=== PATIENT | female | born 1980 | race Caucasian/White ===

== ENCOUNTER 2016-07-27 20:13 | Emergency (ER) | payer MEDICARE, OTHER ==
[2016-07-27 20:48] VITALS: BP 134/94; PULSE 75; RESP 16; TEMP 98.1
[2016-07-27] MEDS ORDERED: CLINDAMYCIN 150 MG CAP PO STA (21:23)
[2016-07-27] MEDS ORDERED: HYDROcodone/APAP 5-325MG 1 EACH TAB PO STA (21:24)
--- NOTE | 2016-07-27 21:28 | ED ---
ENT HPI - General Chief complaint: Dental/Oral Stated complaint: Dental Pain Time Seen by Provider: 07/27/16 21:11 Source: patient Mode of arrival: ambulatory Limitations: no limitations - History of Present Illness Initial comments: Patient is a 35-year-old female presenting to the emergency department with complaints of "infection to wisdom tooth, dental pain and right lower facial swelling." Patient states she started developing a toothache 2 days ago and went to the urgent care clinic in [place] where she was started on amoxicillin. Patient states this is ALLERGIC to penicillin and thinks the amoxicillin might have been the reason why she's been having nausea and vomiting the last 2 days. Patient states she went to [facility] today for increased pain and swelling. Patient states she received another antibiotic but in reviewing records it was noted the antibiotic was Valtrex. Upon further questioning, patient states she is being treated for herpes currently. Patient states she is now returning to [facility] because she can't tolerate the tooth pain which is unrelieved by Motrin 800. Patient states she has a dentist appointment on August 07. Patient denies chills, fevers, shortness of breath, chest pain, abdominal pain, diarrhea, constipation, urinary urgency, dysuria, or hematuria. Patient states she is up- to-date on immunizations. MD complaint: tooth pain Onset/Timin -: days(s) Location: tooth # (32) Severity: severe Severity scale (1-10): 10 Quality: sharp Consistency: constant Improves with: none Worsens with: swallowing, eating Associated Symptoms: toothache, pain with swallowing - Related Data Home Medications Medication Instructions Recorded Confirmed Cephalexin [Keflex] 07/27/16 07/27/16 valACYclovir HCL [Valtrex] 07/27/16 07/27/16 Previous Rx's Medication Instructions Recorded Clindamycin [Cleocin] 450 mg PO TID #30 capsule 07/27/16 HYDROcodone/APAP 5-325MG [Slatedale 5] 1 each PO Q4HR PRN #12 tab 07/27/16 Allergies Allergy/AdvReac Type Severity Reaction Status Date / Time No Known Allergies Allergy Verified 07/27/16 20:47 Review of Systems ROS Statement: Those systems with pertinent positive or pertinent negative responses have been documented in the HPI. ROS Other: All systems not noted in ROS Statement are negative. 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 Absent: scleral icterus, conjunctival injection, periorbital swelling, periorbital tenderness Expanded Ear exam: Present: normal external inspection Mouth exam: Present: tongue normal. Absent: drooling, trismus Teeth exam: Present: dental caries (32), dental tenderness # (32) Throat exam: normal inspection. negative: tonsillar erythema, tonsillomegaly, tonsillar exudate, R peritonsillar mass, L peritonsillar mass Neck exam: Present: normal inspection, tenderness, full ROM, lymphadenopathy ( Right posterior cervical lymph node) Respiratory exam: Present: normal lung sounds bilaterally Cardiovascular Exam: Present: regular rate, normal rhythm, normal heart sounds GI/Abdominal exam: Present: soft, normal bowel sounds Neurological exam: Present: alert, oriented X3, normal gait, other (No focal deficits) Psychiatric exam: Present: anxious Skin exam: Present: warm, dry, intact, normal color. Absent: rash Course Vital Signs 07/27/16 20:44 Temperature 98.1 F Pulse Rate 75 Respiratory 16 Rate Blood Pressure 134/94 O2 Sat by Pulse 98 Oximetry Medical Decision Making - Medical Decision Making Dental abscess to tooth #32 associated with minimal facial swelling. Antibiotics changed to clindamycin. Patient given prescription for Slated[place] 5, 12 tablets. Patient instructed to follow-up with dentist. Patient agrees with treatment plan. Discharge instructions and return parameters reviewed. Disposition Clinical Impression: Dental abscess Disposition: HOME SELF-CARE Condition: Good Instructions: Dental Abscess (ED), Toothache (ED) Additional Instructions: Please finish antibiotic as prescribed. Continue Motrin and Slatedale for pain. Apply warm compresses 3-4 times a day for 15 minutes to help the swelling. Please follow-up with dentist on August 07 as already scheduled. Please return to the emergency department if symptoms do not improve or get worse. Prescriptions: Clindamycin [Cleocin] 450 mg PO TID #30 capsule HYDROcodone/APAP 5-325MG [Slatedale 5] 1 each PO Q4HR PRN #12 tab PRN Reason: Pain Referrals: Raoul Diane MD [Primary Care Provider] - 1-2 days Time of Disposition: 21:27
== END 2016-07-27 21:38 | disposition home or self-care (01) ==
LOC: EC 20:13
DX: K04.7 Periapical abscess without sinus (principal); Z88.0 Allergy status to penicillin; Z85.41 Personal history of malignant neoplasm of cervix uteri; F17.200 Nicotine dependence, unspecified, uncomplicated
CPT/HCPCS: 99282

== ENCOUNTER 2017-07-01 20:17 | Emergency (ER) | payer MEDICARE, OTHER ==
--- NOTE | 2017-07-01 21:53 | ED ---
Abdominal Pain HPI - General Chief Complaint: Abdominal Pain Stated Complaint: 8 weeks 5 days pg with cramping Time Seen by Provider: 07/01/17 21:07 Source: patient, family, RN notes reviewed, old records reviewed Mode of arrival: ambulatory Limitations: no limitations - History of Present Illness Initial Comments: This patient is a 36-year-old female chief complaint of vaginal bleeding for one day. Patient reports that she is 8 weeks . This is her first . She follows up with Dr. Cameron. Patient states that she does not know her blood type. She states she's been having intermittent cramping. She states that the bleeding is dark brown tinge, no significant bleeding at this time. Seems to come and go as well. - Related Data Home Medications Medication Instructions Recorded Confirmed Pnv No.95/Ferrous Fum/Folic AC 1 tab PO DAILY 07/01/17 07/01/17 [ Multivitamin Tablet] Allergies Allergy/AdvReac Type Severity Reaction Status Date / Time codeine Allergy Unknown Verified 07/01/17 21:16 Penicillins Allergy Unknown Verified 07/01/17 21:16 Review of Systems ROS Statement: Those systems with pertinent positive or pertinent negative responses have been documented in the HPI. ROS Other: All systems not noted in ROS Statement are negative. 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 No distress. Limitations: no limitations General appearance: alert, in no apparent distress Head exam: Present: atraumatic, normocephalic, normal inspection Eye exam: Present: normal appearance, PERRL, EOMI. Absent: scleral icterus, conjunctival injection, periorbital swelling ENT exam: Present: normal exam, mucous membranes moist Neck exam: Present: normal inspection. Absent: tenderness, meningismus, lymphadenopathy Respiratory exam: Present: normal lung sounds bilaterally. Absent: respiratory distress, wheezes, rales, rhonchi, stridor Cardiovascular Exam: Present: regular rate, normal rhythm, normal heart sounds. Absent: systolic murmur, diastolic murmur, rubs, gallop, clicks GI/Abdominal exam: Present: soft, normal bowel sounds. Absent: distended, tenderness, guarding, rebound, rigid External exam: Present: normal external exam Speculum exam: Present: vaginal bleeding (scant vaginal bleeding. ). Absent: normal speculum exam, erythema, vaginal discharge By manual exam: Present: normal by manual exam. Absent: cervical motion tenderness, adnexal tenderness, adnexal mass, uterine enlargement, uterine tenderness Extremities exam: Present: normal inspection, full ROM, normal capillary refill. Absent: tenderness, pedal edema, joint swelling, calf tenderness Back exam: Present: normal inspection Neurological exam: Present: alert, oriented X3, CN II-XII intact Psychiatric exam: Present: normal affect, normal mood Skin exam: Present: warm, dry, intact, normal color. Absent: rash Course Vital Signs 07/01/17 07/02/17 07/02/17 20:27 01:20 01:36 Temperature 97 F L 98.4 F 98.1 F Pulse Rate 68 76 63 Respiratory 20 18 18 Rate Blood Pressure 125/84 120/60 126/58 O2 Sat by Pulse 97 98 96 Oximetry Medical Decision Making - Medical Decision Making This patient is a 36 year old female, presents with vaginal bleeding. She believes she is 8 weeks . She reports her LMP was mid May. She relates that she had one day of cramping and has noticed some spotting today. Patient relates the pain is comoing and going and feels like menstrual cramps. Speculum exam shows some scant bleeding, no adenexal tenderness or abdominal tenderness. She relates she has had a history of ovarianc cysts as well. HCG is 4500. Patient is RH negative. Given Rhogam injection. US shows 2cm hyperechoic mass, and no IUP noted at this time. Discussed with . Without significant tenderness, discussed that patient needs to repeat HCG and follow with Dr. Powell for serial US. Discussed return parameters and she plans to see Dr. Powell tomorrow. - Lab Data Lab Results 07/01/17 07/01/17 07/01/17 Range/Units 22:00 22:00 22:00 HCG, Quant 4551.0 mIU/mL Urine Color Yellow Urine Appearance Clear (Clear) Urine pH 5.5 (5.0-8.0) Ur Specific Mallie 1.015 (1.001-1.035) Urine Protein Negative (Negative) Urine Glucose (UA) Negative (Negative) Urine Ketones Negative (Negative) Urine Blood Small H (Negative) Urine Nitrite Negative (Negative) Urine Bilirubin Negative (Negative) Urine Urobilinogen <2.0 (<2.0) mg/dL Ur Leukocyte Esterase Negative (Negative) Urine RBC 1 (0-5) /hpf Urine WBC <1 (0-5) /hpf Ur Squamous Epith Cells 3 (0-4) /hpf Urine Mucus Rare H (None) /hpf Trichomonas Ag (Rapid) (Negative) Blood Type A Negative Blood Type Recheck No Antibody Screen NEGATIVE 07/01/17 Range/Units 23:56 HCG, Quant mIU/mL Urine Color Urine Appearance (Clear) Urine pH (5.0-8.0) Ur Specific Mallie (1.001-1.035) Urine Protein (Negative) Urine Glucose (UA) (Negative) Urine Ketones (Negative) Urine Blood (Negative) Urine Nitrite (Negative) Urine Bilirubin (Negative) Urine Urobilinogen (<2.0) mg/dL Ur Leukocyte Esterase (Negative) Urine RBC (0-5) /hpf Urine WBC (0-5) /hpf Ur Squamous Epith Cells (0-4) /hpf Urine Mucus (None) /hpf Trichomonas Ag (Rapid) Negative (Negative) Blood Type Blood Type Recheck Antibody Screen - Radiology Data Radiology results: report reviewed Nurse's empty. There is a somewhat hypervascular 2 cm area on the right adnexal region there is concern for possibility of early ectopic . Follow-up is recommended. Disposition Clinical Impression: Threatened miscarriage in early Disposition: HOME SELF-CARE Condition: Good Instructions: Ectopic (ED), Threatened Miscarriage (ED) Additional Instructions: Patient advised to follow-up with [employer], Dr. Cameron in approximately 1-2 days. Patient needs to repeat here her blood work in 2 days. Return to the emergency department if any alarming signs or symptoms occur. Referrals: Yazan Saucedo MD [Primary Care Provider] - 1-2 days González Powell DO [Doctor of Osteopathic Medicine] - 1-2 days Time of Disposition: 00:12
[2017-07-01 22:22] LABS: Appearance,Urine Clear (Clear); Bilirubin,Urine Negative (Negative); Blood,Urine Small (Negative); Color,Urine Yellow; Glucose,Urine (UA) Negative (Negative); Ketones,Urine Negative (Negative); Leukocyte Esterase,Urine Negative (Negative); Mucus,Urine Rare /hpf; PH, Urine 5.5 (5.0-8.0); Protein,Urine Negative (Negative); RBC,Urine 1 /hpf (0-5); Specific Gravity,Urine 1.015 (1.001-1.035); Squamous Epithelial Cell,Urine 3 /hpf (0-4); Urobilinogen,Urine <2.0 mg/dL (<2.0); WBC,Urine <1 /hpf (0-5)
--- NOTE | 2017-07-01 23:03 | US ---
EXAMINATION TYPE: US OB <=14 wks transvag DATE OF EXAM: 07/01/2017 COMPARISON: NONE CLINICAL HISTORY: pain. Pain EXAM PERFORMED: Transvaginal (TV) and Transabdominal (TA) EXAM MEASUREMENTS: GESTATIONAL AGE / DATING Physician Established: Not yet established Dates by LMP: (7 weeks/0 days) EDC: 02/17/2018 Dates by First Scan: No previous this is first scan Dates by Current Scan for: Unable to date by today's study MATERNAL ANATOMY Uterus: 7.5 x 2.3 x 3.8 cm Right Ovary: 2.8 x 1.5 x 2.5cm Left Ovary: 2.5 x 1.4 x 2.1cm Post CDS / Adnexa: Solid hypoechoic area with cystic structure within adjacent to right ovary seen me asuring 3.1 x 2.1 x 2.4cm with color flow. Suggestive of possible ectopic . Presence of free fluid: no GESTATION / SURVEY IUP: No IUP seen at this time Beta HcG (if available): Not available at this time No IUP seen at this time. There is a solid hypoechoic area with cystic structure within adjacent to r ight ovary seen measuring 3.1 x 2.1 x 2.4cm with color flow. Suggestive of possible ectopic beta Hcg is not back at this time. IMPRESSION: Uterus is empty. There is a somewhat hypervascular 2 cm area in the right adnexal region that raises the possibility of early ectopic . Follow-up is recommended.
[2017-07-02] MEDS ORDERED: Rhogam IMMUNE GLOBULIN 1,500 UNIT/1 ML IM ONE (00:06)
[2017-07-02 01:26] VITALS: RESP 18
[2017-07-02 01:37] VITALS: BP 126/58; PULSE 63; TEMP 98.1
[2017-07-03 14:48] LABS: C. trachomatis,PCR Negative (Neg,Equiv); Chlamydia trachomatis Source Cervix; N. gonorrhoeae,PCR Negative (Neg,Equiv); Neisseria Source Cervix
== END 2017-07-02 01:40 | disposition home or self-care (01) ==
LOC: EC 20:17
DX: O20.0 Threatened abortion (principal); O99.331 Smoking (tobacco) complicating pregnancy, first trimester; F17.200 Nicotine dependence, unspecified, uncomplicated; Z3A.08 8 weeks gestation of pregnancy; Z85.41 Personal history of malignant neoplasm of cervix uteri; Z88.0 Allergy status to penicillin; Z88.5 Allergy status to narcotic agent
CPT/HCPCS: 36415; 86900; 86901; 86850; 81001; 84702; 87808; 87491; 87591; 87070; 76801; 76817; 99284; 96372; J2791; 87205

== ENCOUNTER → 2017-07-02 | Outpatient (CLI) | payer MEDICARE, OTHER ==
[~2017-07-02] MED LIST: METHOTREXATE SODIUM (PF) 25 MG/ML 2 ML VIAL IM ONE
[2017-07-02 15:54] VITALS: BP 119/82; PULSE 71; RESP 16; TEMP 98.3
== END | disposition home or self-care (01) ==
LOC: PROCWHC3 15:27
PROVIDERS: ATTEND Obstetrics & Gynecology
DX: O00.90 Unspecified ectopic pregnancy without intrauterine pregnancy (principal)
CPT/HCPCS: 96402; J9260

== ENCOUNTER → 2017-07-02 | Outpatient (CLI) | payer MEDICARE, OTHER ==
[2017-07-02 17:19] LABS: ALT 22 U/L (9-52); AST 21 U/L (14-36); Blood Urea Nitrogen 7 mg/dL (7-17)
== END | disposition home or self-care (01) ==
LOC: LABWHC1 16:42
PROVIDERS: ATTEND Obstetrics & Gynecology
DX: O00.90 Unspecified ectopic pregnancy without intrauterine pregnancy (principal); Z3A.00 Weeks of gestation of pregnancy not specified
CPT/HCPCS: 36415; 82565; 84450; 84460; 84520

== ENCOUNTER 2017-07-07 14:49 | Emergency (ER) | payer MEDICARE, OTHER ==
[2017-07-07 14:55] VITALS: TEMP 97.8
[2017-07-07 15:17] LABS: Basophils % (A) 0 %; Eosinophils # (A) 0.1 k/uL (0-0.7); Eosinophils % (A) 1 %; HGB 13.5 gm/dL (11.4-16.0); Lymphocytes # (A) 2.9 k/uL (1.0-4.8); Lymphocytes % (A) 27 %; MCH 30.1 pg (25.0-35.0); MCHC 34.7 g/dL (31.0-37.0); MCV 86.9 fL (80.0-100.0); Mean Platelet Volume 6.9; Monocytes # (A) 0.4 k/uL (0-1.0); Monocytes % (A) 4 %; Neutrophils # (A) 7.1 k/uL (1.3-7.7); Neutrophils % (A) 66 %; Platelet Count 304 k/uL (150-450); RBC 4.48 m/uL (3.80-5.40); RDW 12.8 % (11.5-15.5); WBC 10.8 k/uL (3.8-10.6)
[2017-07-07] MEDS ORDERED: ONDANSETRON 4 MG/2 ML VIAL IVP STA (15:32)
[2017-07-07] MEDS ORDERED: MORPHINE SULFATE 4 MG/ML SYRINGE IVP STA (15:32)
[2017-07-07] MEDS ORDERED: SODIUM CHLORIDE 0.9% 1,000 ML IV STA (15:33)
[2017-07-07] MEDS ORDERED: SODIUM CHLORIDE 0.9% 500 ML IV STA (15:33)
[2017-07-07 15:37] LABS: ALT 29 U/L (9-52); AST 15 U/L (14-36); Albumin 3.7 g/dL (3.5-5.0); Alkaline Phosphatase 79 U/L (38-126); Amylase 46 U/L (30-110); Anion Gap 8 mmol/L; Blood Urea Nitrogen 10 mg/dL (7-17); Calcium 9.4 mg/dL (8.4-10.2); Carbon Dioxide 26 mmol/L (22-30); Chloride 107 mmol/L (98-107); Glucose 80 mg/dL (74-99); Lipase 84 U/L (23-300); Potassium 4.2 mmol/L (3.5-5.1); Sodium 141 mmol/L (137-145); Total Bilirubin 0.2 mg/dL (0.2-1.3); Total Protein 6.8 g/dL (6.3-8.2)
[2017-07-07 15:51] LABS: HCG,Quantitative Serum 2250.1 mIU/mL
[2017-07-07 15:53] LABS: INR 1.1 (<1.2); Prothrombin Time 10.3 sec (9.0-12.0)
[2017-07-07 15:54] LABS: Partial Thromboplastin Time 24.8 sec (22.0-30.0)
[2017-07-07 16:39] LABS: Appearance,Urine Clear (Clear); Bacteria,Urine Rare /hpf; Bilirubin,Urine Negative (Negative); Blood,Urine Large (Negative); Color,Urine Yellow; Glucose,Urine (UA) Negative (Negative); Ketones,Urine Negative (Negative); Leukocyte Esterase,Urine Negative (Negative); Mucus,Urine Occasional /hpf; PH, Urine 5.5 (5.0-8.0); Protein,Urine 1+ (Negative); RBC,Urine >182 /hpf (0-5); Specific Gravity,Urine 1.022 (1.001-1.035); Squamous Epithelial Cell,Urine 6 /hpf (0-4); Urobilinogen,Urine <2.0 mg/dL (<2.0); WBC,Urine 15 /hpf (0-5)
--- NOTE | 2017-07-07 16:54 | US ---
EXAMINATION TYPE: US OB <=14 wks transvag DATE OF EXAM: 07/07/2017 COMPARISON: US dated 07/01/2017 CLINICAL HISTORY: Pain; EC patient with right pelvic pain and vaginal bleeding x 3 days; recent prior US here; G1; LMP unknown. EXAM PERFORMED: Transvaginal (TV) and Transabdominal (TA); TVUS performed to better assess right ova ry. EXAM MEASUREMENTS: GESTATIONAL AGE / DATING Physician Established: Not yet established Dates by LMP: LMP unknown Dates by First Scan: no IUP seen Dates by Current Scan for: No IUP seen at this time; possible ectopic seen medial to right ovary and as previously seen by US here. MATERNAL ANATOMY Uterus: 7.5 x 3.6 x 4.8cm; small Nabothian cysts in cervix = 0.4 x 0.5 x 0.3cm Right Ovary: 4.6 x 2.8 x 2.6cm includes medial mass Left Ovary: 2.6 x 1.5 x 1.5cm Post CDS / Adnexa: small amount of complex free fluid is noted medial to right ovary = 0.8 x 1.3 x 1. 3cm Presence of corpus luteal cyst: not identified, but thick walled complex area with central cystic com ponent and hyperechoic wall adjacent to rt ovarian parenchyma is noted especially on image #44 and si ze of hyperechoic mass = 2.6 x 2.3 x 2.0cm on image #63; consider ectopic medial to right o vary. Peripheral increased vascularity noted on color Doppler. GESTATION / SURVEY IUP: No IUP seen at this time Date of LMP: unknown Beta HcG (if available): 2250.1 Grayscale, color Doppler, spectral Doppler imaging performed of the left ovary, color Doppler and gra y scale the right ovary. IMPRESSION: The right adnexal lesion may have increased in size slightly in interval although there are differenc es in technique. No intrauterine is evident. Cannot exclude ectopic , correlate wi th beta hCG levels. Fluid adjacent to right ovary was not seen on prior exam.
[2017-07-07 17:14] VITALS: BP 112/55; PULSE 63; RESP 18
--- NOTE | 2017-07-07 17:40 | ED ---
Abdominal Pain HPI - General Chief Complaint: Abdominal Pain Stated Complaint: Female Time Seen by Provider: 07/07/17 15:24 Source: patient Mode of arrival: ambulatory Limitations: no limitations - History of Present Illness Initial Comments: 36-year-old white female presents with a complaint of some right lower quadrant abdominal pain as well as vaginal bleeding. She states that she was diagnosed with an ectopic on 07/01/2017 in the emergency department. She has been following up with her [facility] physician. She received methotrexate 5 days ago. Since that time, she has had some increased pain in her right lower quadrant as well as increased vaginal bleeding. She states that it is bright red blood per vagina and she is going through approximately one pad per hour. She has not taken anything for the pain as of yet. She has been following up regularly with her [facility] physician, Dr. Cameron. She was supposed to get a repeat beta-hCG yesterday but she did not get this lab test done. No other complaints or modifying factors. This is her first . - Related Data Home Medications Medication Instructions Recorded Confirmed Pnv No.95/Ferrous Fum/Folic AC 1 tab PO DAILY 07/01/17 07/07/17 [ Multivitamin Tablet] Previous Rx's Medication Instructions Recorded Hydrocodone/Acetaminophen [Patrick 1 - 2 each PO Q4HR PRN #20 tab 07/07/17 5-325] Allergies Allergy/AdvReac Type Severity Reaction Status Date / Time codeine Allergy Unknown Verified 07/07/17 16:27 Penicillins Allergy Unknown Verified 07/07/17 16:27 Review of Systems ROS Statement: Those systems with pertinent positive or pertinent negative responses have been documented in the HPI. ROS Other: All systems not noted in ROS Statement are negative. 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 VITAL SIGNS: Heart rate, blood pressure, respiratory rate reviewed as recorded in nurse's notes. EYES: Pupils are round and reactive. Extraocular movements are intact. No conjunctival / lid redness or swelling. ENT: No external evidence of injury, swelling, or ecchymosis. Airway is patent. Throat is clear. NECK: Nontender. No swelling or evidence of injury. No subcutaneous emphysema. Trachea is midline. No thyroid mass. HEART: Regular rate and rhythm. Good peripheral pulses. LUNGS/CHEST: Breath sounds clear and equal bilaterally. No rales, rhonchi, or wheezes. No ecchymosis, subcutaneous emphysema, or tenderness. ABDOMEN: There is some mild tenderness noted in the right lower quadrant. No palpable masses or organomegaly. No peritoneal signs. No abdominal wall swelling or ecchymosis. EXTREMITIES: No extremity tenderness. Normal muscle tone and function. No thoracolumbar tenderness. NEUROLOGIC: Sensation is grossly intact. Cranial nerve exam reveals face is symmetrical, tongue is midline, speech is clear. SKIN: No abrasions or ecchymosis is noted. No induration or masses noted. PSYCHIATRIC: Alert and oriented. Appropriate behavior and judgment. Limitations: no limitations Course Vital Signs 07/07/17 07/07/17 07/07/17 14:53 16:28 17:13 Temperature 97.8 F Pulse Rate 94 62 63 Respiratory 20 18 Rate Blood Pressure 129/86 105/57 112/55 O2 Sat by Pulse 98 98 97 Oximetry Medical Decision Making - Medical Decision Making The patient was seen and examined. All diagnostics were reviewed. The patient' s hemoglobin is quite stable. She does not appear to be any significant distress but is given 0.5 modems of Dilaudid and relates that she has significant relief of her symptoms. She also received some Zofran for nausea prophylaxis. The patient's beta hCG did come down from 4502 the mid . She also had an ultrasound done which does show a similar appearance to the last right adnexal mass but there may be a scant amount of fluid around the ovary. The case is discussed with Dr. Gao from [facility] covering for Dr. Cameron. She is familiar with the case and the findings from today are also discussed in detail with her. She does relate that the hemoglobin appears quite stable, that the amount of fluid around the ovary is very scant, that the quantitative beta hCG has decreased significantly, and that women often times will have increased pain as the methotrexate is working on the ectopic . She does not feel as though the patient needs emergent surgery or admission at this time but does recommend that she follow up very closely with Dr. Cameron in 2 days and return to the ER in the interim if her symptoms do worsen. The patient is agreeable with this plan. Return parameters were discussed and ultimately detail with her and her family member who is present and they do understand that if the pain does become severe or the bleeding is more significant than she is to immediately return to the emergency department for reevaluation. She is alert and lucid and voices clear understanding to this. - Lab Data Result diagrams: 07/07/17 15:07 07/07/17 15:07 Lab Results 07/07/17 07/07/17 07/07/17 Range/Units 15:07 15:07 15:07 WBC 10.8 H (3.8-10.6) k/uL RBC 4.48 (3.80-5.40) m/uL Hgb 13.5 (11.4-16.0) gm/dL Hct 39.0 (34.0-46.0) % MCV 86.9 (80.0-100.0) fL MCH 30.1 (25.0-35.0) pg MCHC 34.7 (31.0-37.0) g/dL RDW 12.8 (11.5-15.5) % Plt Count 304 (150-450) k/uL Neutrophils % 66 % Lymphocytes % 27 % Monocytes % 4 % Eosinophils % 1 % Basophils % 0 % Neutrophils # 7.1 (1.3-7.7) k/uL Lymphocytes # 2.9 (1.0-4.8) k/uL Monocytes # 0.4 (0-1.0) k/uL Eosinophils # 0.1 (0-0.7) k/uL Basophils # 0.0 (0-0.2) k/uL PT (9.0-12.0) sec INR (<1.2) APTT (22.0-30.0) sec Sodium 141 (137-145) mmol/L Potassium 4.2 (3.5-5.1) mmol/L Chloride 107 (98-107) mmol/L Carbon Dioxide 26 (22-30) mmol/L Anion Gap 8 mmol/L BUN 10 (7-17) mg/dL Creatinine 0.70 (0.52-1.04) mg/dL Est GFR (CKD-EPI)AfAm >90 (>60 ml/min/1.73 sqM) Est GFR (CKD-EPI)NonAf >90 (>60 ml/min/1.73 sqM) Glucose 80 (74-99) mg/dL Calcium 9.4 (8.4-10.2) mg/dL Total Bilirubin 0.2 (0.2-1.3) mg/dL AST 15 (14-36) U/L ALT 29 (9-52) U/L Alkaline Phosphatase 79 (38-126) U/L Total Protein 6.8 (6.3-8.2) g/dL Albumin 3.7 (3.5-5.0) g/dL Amylase 46 (30-110) U/L Lipase 84 (23-300) U/L HCG, Quant 2250.1 mIU/mL Urine Color Urine Appearance (Clear) Urine pH (5.0-8.0) Ur Specific [place] (1.001-1.035) Urine Protein (Negative) Urine Glucose (UA) (Negative) Urine Ketones (Negative) Urine Blood (Negative) Urine Nitrite (Negative) Urine Bilirubin (Negative) Urine Urobilinogen (<2.0) mg/dL Ur Leukocyte Esterase (Negative) Urine RBC (0-5) /hpf Urine WBC (0-5) /hpf Ur Squamous Epith Cells (0-4) /hpf Urine Bacteria (None) /hpf Urine Mucus (None) /hpf Blood Type A Negative Blood Type Recheck No Antibody Screen POSITIVE Antibody Identification Anti-D Direct Antiglob Test Negative Spec Expiration Date 07/10/2017 - 230607/07/17 07/07/17 Range/Units 15:07 16:20 WBC (3.8-10.6) k/uL RBC (3.80-5.40) m/uL Hgb (11.4-16.0) gm/dL Hct (34.0-46.0) % MCV (80.0-100.0) fL MCH (25.0-35.0) pg MCHC (31.0-37.0) g/dL RDW (11.5-15.5) % Plt Count (150-450) k/uL Neutrophils % % Lymphocytes % % Monocytes % % Eosinophils % % Basophils % % Neutrophils # (1.3-7.7) k/uL Lymphocytes # (1.0-4.8) k/uL Monocytes # (0-1.0) k/uL Eosinophils # (0-0.7) k/uL Basophils # (0-0.2) k/uL PT 10.3 (9.0-12.0) sec INR 1.1 (<1.2) APTT 24.8 (22.0-30.0) sec Sodium (137-145) mmol/L Potassium (3.5-5.1) mmol/L Chloride (98-107) mmol/L Carbon Dioxide (22-30) mmol/L Anion Gap mmol/L BUN (7-17) mg/dL Creatinine (0.52-1.04) mg/dL Est GFR (CKD-EPI)AfAm (>60 ml/min/1.73 sqM) Est GFR (CKD-EPI)NonAf (>60 ml/min/1.73 sqM) Glucose (74-99) mg/dL Calcium (8.4-10.2) mg/dL Total Bilirubin (0.2-1.3) mg/dL AST (14-36) U/L ALT (9-52) U/L Alkaline Phosphatase (38-126) U/L Total Protein (6.3-8.2) g/dL Albumin (3.5-5.0) g/dL Amylase (30-110) U/L Lipase (23-300) U/L HCG, Quant mIU/mL Urine Color Yellow Urine Appearance Clear (Clear) Urine pH 5.5 (5.0-8.0) Ur Specific [place] 1.022 (1.001-1.035) Urine Protein 1+ H (Negative) Urine Glucose (UA) Negative (Negative) Urine Ketones Negative (Negative) Urine Blood Large H (Negative) Urine Nitrite Negative (Negative) Urine Bilirubin Negative (Negative) Urine Urobilinogen <2.0 (<2.0) mg/dL Ur Leukocyte Esterase Negative (Negative) Urine RBC >182 H (0-5) /hpf Urine WBC 15 H (0-5) /hpf Ur Squamous Epith Cells 6 H (0-4) /hpf Urine Bacteria Rare H (None) /hpf Urine Mucus Occasional H (None) /hpf Blood Type Blood Type Recheck Antibody Screen Antibody Identification Direct Antiglob Test Spec Expiration Date Disposition Clinical Impression: Ectopic , Abdominal pain, Vaginal bleeding Disposition: HOME SELF-CARE Condition: Good Instructions: Ectopic (ED) Additional Instructions: Please follow-up with Dr. Powell in 2 days as scheduled and return immediately if symptoms do worsen. Prescriptions: Hydrocodone/Acetaminophen [Patrick 5-325] 1 - 2 each PO Q4HR PRN #20 tab PRN Reason: Pain Referrals: Yazan Saucedo MD [Primary Care Provider] - 1-2 days González Powell DO [Doctor of Osteopathic Medicine] - 07/09/17 Time of Disposition: 17:39
== END 2017-07-07 17:59 | disposition home or self-care (01) ==
LOC: EC 14:49
DX: O08.89 Other complications following an ectopic and molar pregnancy (principal); R10.31 Right lower quadrant pain; O08.1 Delayed or excessive hemorrhage following ectopic and molar pregnancy; F17.200 Nicotine dependence, unspecified, uncomplicated; Z85.41 Personal history of malignant neoplasm of cervix uteri; Z90.49 Acquired absence of other specified parts of digestive tract; Z88.5 Allergy status to narcotic agent; Z88.0 Allergy status to penicillin
CPT/HCPCS: 36415; 86900; 86901; 80053; 82150; 83690; 85025; 85610; 85730; 86850; 86870; 86880; 81001; 84702; 76801; 76817; 99284; 96374; 96375; 96361; J2270; J2405

== ENCOUNTER → 2017-07-13 | Outpatient (CLI) | payer MEDICARE, OTHER | LOC: LABWHC1 10:24 | PROVIDERS: ATTEND Obstetrics & Gynecology | DX: O00.90 Unspecified ectopic pregnancy without intrauterine pregnancy (principal); Z3A.00 Weeks of gestation of pregnancy not specified | CPT/HCPCS: 36415; 84702 ==

== ENCOUNTER → 2017-07-24 | Outpatient (CLI) | payer MEDICARE, OTHER | END | disposition home or self-care (01) | LOC: LABWHC1 15:21 | PROVIDERS: ATTEND Obstetrics & Gynecology | DX: O00.90 Unspecified ectopic pregnancy without intrauterine pregnancy (principal); Z3A.00 Weeks of gestation of pregnancy not specified | CPT/HCPCS: 36415; 84702 ==

== ENCOUNTER 2017-09-11 16:20 | Inpatient (IN) | payer MEDICARE, MEDICAID ==
--- NOTE | 2017-09-11 16:50 | ED ---
General Adult HPI - General Chief complaint: Psychiatric Symptoms Stated complaint: Mental Health Eval Time Seen by Provider: 09/11/17 16:31 Source: patient, RN notes reviewed Mode of arrival: ambulatory Limitations: no limitations - History of Present Illness Initial comments: Patient 36-year-old female presented to the emergency room today with a chief complaint of increased depression. Patient does admit that symptoms been ongoing for some time to see a therapist. States that she talked with therapist today was advised coming here to the emergency room for further evaluation. Patient denies any thoughts of hurting herself. She denies any thoughts of hurting others. She does not that she's had increased anger in general. Denies any other complaints or symptoms. Patient denies any recent fever, chills, shortness of breath, chest pain, back pain, headaches or visual changes, or any other complaints. - Related Data Home Medications Medication Instructions Recorded Confirmed clonazePAM [KlonoPIN] 0.5 mg PO HS 09/11/17 09/11/17 Allergies Allergy/AdvReac Type Severity Reaction Status Date / Time codeine Allergy Unknown Verified 09/11/17 16:51 Penicillins Allergy Unknown Verified 09/11/17 16:51 Review of Systems ROS Statement: Those systems with pertinent positive or pertinent negative responses have been documented in the HPI. ROS Other: All systems not noted in ROS Statement are negative. Past Medical History Additional Past Medical History / Comment(s): cervial CA History of Any Multi-Drug Resistant Organisms: None Reported Past Surgical History: Cholecystectomy Past Psychological History: ADD/ADHD, Anxiety, Bipolar, Depression Smoking Status: Current every day smoker Past Alcohol Use History: Occasional Past Drug Use History: None Reported General Exam - General Exam Comments Initial Comments: General: The patient is awake and alert, in no distress, and does not appear acutely ill. Eye: Pupils are equal, round and reactive to light, extra-ocular movements are intact. No nystagmus. There is normal conjunctiva bilaterally. No signs of icterus. Ears, nose, mouth and throat: There are moist mucous membranes and no oral lesions. Neck: The neck is supple, there is no tenderness or JVD. Cardiovascular: There is a regular rate and rhythm. No murmur, rub or gallop is appreciated. Respiratory: Lungs are clear to auscultation, respirations are non-labored, breath sounds are equal. No wheezes, stridor, rales, or rhonchi. Musculoskeletal: Normal ROM, no tenderness. Strength 5/5. Sensation intact. Neurological: A&O x 3. CN II-XII intact, There are no obvious motor or sensory deficits. Coordination appears grossly intact. Speech is normal. Skin: Skin is warm and dry and no rashes or lesions are noted. Psychiatric: Cooperative. Limitations: no limitations Course Vital Signs 09/11/17 16:24 Temperature 97.7 F Pulse Rate 88 Respiratory 17 Rate Blood Pressure 154/95 O2 Sat by Pulse 100 Oximetry Medical Decision Making - Medical Decision Making Patient has been seen by mental health here in emergency room. They recommend admission. - Lab Data Lab Results 09/11/17 09/11/17 Range/Units 18:00 18:00 Urine HCG, Qual Not Detected (Not Detectd) Urine Opiates Screen Not Detected (NotDetected) Ur Oxycodone Screen Not Detected (NotDetected) Urine Methadone Screen Not Detected (NotDetected) Ur Propoxyphene Screen Not Detected (NotDetected) Ur Barbiturates Screen Not Detected (NotDetected) U Tricyclic Antidepress Not Detected (NotDetected) Ur Phencyclidine Scrn Not Detected (NotDetected) Ur Amphetamines Screen Not Detected (NotDetected) U Methamphetamines Scrn Not Detected (NotDetected) U Benzodiazepines Scrn Not Detected (NotDetected) Urine Cocaine Screen Not Detected (NotDetected) U Marijuana (THC) Screen Not Detected (NotDetected) Disposition Clinical Impression: Depression Disposition: TRANSFER TO PSYCH HOSP/UNIT Is patient prescribed a controlled substance at d/c from ED?: No Referrals: Yazan Saucedo MD [Primary Care Provider] - 1-2 days Time of Disposition: 18:52
[2017-09-11 18:24] LABS: Amphetamine Screen,Urine Not Detected (NotDetected); Barbiturate Screen,Urine Not Detected (NotDetected); Benzodiazepines Screen,Urine Not Detected (NotDetected); Cocaine Screen,Urine Not Detected (NotDetected); Methadone Screen, Urine Not Detected (NotDetected); Opiate Screen,Urine Not Detected (NotDetected); Oxycodone Screen, Urine Not Detected (NotDetected); Phencyclidine Screen,Urine Not Detected (NotDetected); Tricyclic Antidepressant,Urine Not Detected (NotDetected); Urn Cannabinoid Scrn Not Detected (NotDetected)
[2017-09-11 22:04] VITALS: BMI 30.1
[2017-09-11] MEDS ORDERED: MAG HYDROX/AL HYDROX/SIMETH 30 ML CUP PO PRN (22:28)
[2017-09-11] MEDS ORDERED: MAGNESIUM HYDROXIDE 2,400 MG/10 ML CUP PO PRN (22:28)
[2017-09-11] MEDS ORDERED: ACETAMINOPHEN TAB 325 MG TAB PO PRN (22:28)
[2017-09-12] MEDS: clonazePAM 1 MG TAB PO SCH ×3 (00:41→20:45)
--- NOTE | 2017-09-12 04:42 | CONS ---
CONSULTATION DATE OF SERVICE: 09/11/2017 REASON FOR CONSULTATION: Advice regarding cervical cancer and other medical issues requested by Psychiatry. HISTORY OF PRESENT ILLNESS: This 36-year-old woman with past medical history of cervical cancer, also history of ADD, history of anxiety, bipolar depression, history of nicotine dependence being followed by Dr. Saucedo in the outpatient setting admitted for psychiatric evaluation and increasing depression. There is no history of chest pain, palpitation, headache, loss of consciousness, nausea, vomiting, and fever, rigors or chills. PAST MEDICAL: Cervical cancer, ADD, anxiety, bipolar, depression and smoking. MEDICATIONS ARE: Home medications are: Klonopin 0.5 mg daily. ALLERGIES: ARE CODEINE, PENICILLIN. FAMILY HISTORY: No history of heart disease or strokes in the family. SOCIAL HISTORY: History of smoking. Occasional alcohol intake. REVIEW OF SYSTEMS: ENT: No diminished hearing or vision. CARDIOVASCULAR: No angina. Respiratory system: No cough or hemoptysis. GI no nausea or vomiting. no dysuria. Nervous system: No numbness, weakness. Allergy/Immunology: No asthma or hayfever. Musculoskeletal as mentioned earlier. Hematology/Oncology: No history of anemia. Endocrine: No history of diabetes mellitus, hypothyroidism. Constitutional: As mentioned earlier. Dermatology: Negative. Rheumatology: Negative. Psychiatry: As mentioned earlier. PHYSICAL EXAMINATION: Alert and oriented times three. Pulse is 72, blood pressure 137/94, respiration 18, temperature 99.1, pulse ox 98% on room air. HEENT: Conjunctivae normal. Oral mucosa moist. Neck is no jugular venous distention. No carotid bruit. No lymph node enlargement. Cardiovascular system: S1, S2. RESPIRATORY: Breath sounds diminished in the bases. No rhonchi. No crackles. ABDOMEN: Soft, nontender. No mass palpable. Legs no edema. No swelling. NERVOUS SYSTEM: Cranial nerves 2 thru 12 grossly intact. Moves all 4 limbs. No signs of cerebellar dysfunction. No motor weakness noted. Gait normal. Lymphatics: No lymph nodes palpable in the neck, axillae or groin. Skin no ulcer, rash or bleeding. LABS: At this time shows UA drug screen is negative. ASSESSMENT: 1. Anxiety bipolar depression. 2. History of nicotine dependence. 3. History of cholecystectomy. 4. History of cervical cancer. RECOMMENDATIONS AND DISCUSSION: I would recommend to continue current medications, management and symptomatic treatment. Smoking cessation. Otherwise recommend close follow up with Dr. Saucedo in the outpatient setting. Further recommendations to follow. Thank you for letting us participate in this patient. We will be happy to review if there are abnormalities in the initial blood work. MMODL / IJN: [id number] /
[2017-09-12] MEDS: NICOTINE 7MG/24HR PATCH TRANSDERM SCH (08:55)
[2017-09-12 09:01] LABS: Basophils % (A) 0 %; Eosinophils # (A) 0.3 k/uL (0-0.7); Eosinophils % (A) 3 %; HCT 39.7 % (34.0-46.0); HGB 13.9 gm/dL (11.4-16.0); Lymphocytes % (A) 35 %; MCH 30.4 pg (25.0-35.0); MCHC 35.1 g/dL (31.0-37.0); MCV 86.7 fL (80.0-100.0); Mean Platelet Volume 7.2; Monocytes # (A) 0.4 k/uL (0-1.0); Monocytes % (A) 5 %; Neutrophils # (A) 4.6 k/uL (1.3-7.7); Neutrophils % (A) 54 %; Platelet Count 268 k/uL (150-450); RBC 4.58 m/uL (3.80-5.40); RDW 12.9 % (11.5-15.5); WBC 8.5 k/uL (3.8-10.6)
[2017-09-12 09:19] LABS: ALT 32 U/L (9-52); AST 21 U/L (14-36); Albumin 3.7 g/dL (3.5-5.0); Alkaline Phosphatase 94 U/L (38-126); Anion Gap 11 mmol/L; Blood Urea Nitrogen 13 mg/dL (7-17); Calcium 9.5 mg/dL (8.4-10.2); Carbon Dioxide 25 mmol/L (22-30); Chloride 106 mmol/L (98-107); Cholesterol 150 mg/dL (<200); Glucose 87 mg/dL (74-99); HDL Cholesterol 46 mg/dL (40-60); LDL Cholesterol,Calculated 80 mg/dL (0-99); Potassium 4.2 mmol/L (3.5-5.1); Sodium 142 mmol/L (137-145); Total Bilirubin 0.6 mg/dL (0.2-1.3); Total Protein 6.8 g/dL (6.3-8.2); Triglycerides 118 mg/dL (<150)
[2017-09-12] MEDS: DULoxetine HCL 30 MG CAPSULE.DR PO SCH (16:45)
[2017-09-12] MEDS: ARIPiprazole 5 MG TAB PO SCH (16:45)
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
[2017-09-12 18:19] LABS: Hemoglobin A1C 5.3 % (4.0-6.0)
[2017-09-12] MEDS ORDERED: clonazePAM 0.5 MG TAB PO SCH (21:02)
[2017-09-13 06:48] VITALS: RESP 16
[2017-09-13] MEDS: NICOTINE 7MG/24HR PATCH TRANSDERM SCH (09:28)
[2017-09-13] MEDS: ARIPiprazole 5 MG TAB PO SCH (09:29)
[2017-09-13] MEDS: DULoxetine HCL 30 MG CAPSULE.DR PO SCH (09:29)
--- NOTE | 2017-09-13 12:54 | P.PN ---
Progress Note - Text Progress Note Date: 09/13/17 Interval history: Patient is seen in [facility] again today. She reports she slept well last night. She does describe feeling tired but seems to be tolerating the Cymbalta and Abilify well. She would like to change the Abilify to bedtime. She feels like her mood is much more level. Anxiety level seems to be improved. Mental status exam: She is alert and cooperative. Her speech is fluent, not rapid or pressured. Thought processes organized. Her mood overall appears improved and she describes it as being more level. She denies any thoughts of harm to self or others. She denies any hallucinations. She does not show any agitation. Plan: We'll change the scheduling of Abilify to bedtime to minimize any possible sedation. Continue to monitor for any medication side effects and monitor her ongoing response.
[2017-09-14 07:06] VITALS: TEMP 98.2
[2017-09-14] MEDS: DULoxetine HCL 30 MG CAPSULE.DR PO SCH (08:53)
[2017-09-14] MEDS: NICOTINE 7MG/24HR PATCH TRANSDERM SCH (08:54)
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
[2017-09-14] MEDS ORDERED: ARIPiprazole 5 MG TAB PO SCH (21:00)
[2017-09-14] MEDS ORDERED: PRAZOSIN 1 MG CAP PO SCH (21:00)
[2017-09-15 06:43] VITALS: BP 129/69; PULSE 77
[2017-09-15] MEDS: NICOTINE 7MG/24HR PATCH TRANSDERM SCH (08:43)
[2017-09-15 09:17] LABS: Appearance,Urine Clear (Clear); Bilirubin,Urine Negative (Negative); Blood,Urine Negative (Negative); Color,Urine Yellow; Glucose,Urine (UA) Negative (Negative); Ketones,Urine Negative (Negative); Leukocyte Esterase,Urine Negative (Negative); Nitrite,Urine Negative (Negative); Protein,Urine Negative (Negative); Specific Gravity,Urine 1.016 (1.001-1.035); Urobilinogen,Urine <2.0 mg/dL (<2.0)
--- NOTE | 2017-09-15 09:55 | P.DS ---
Providers Date of admission: 09/11/17 19:24 Expected date of discharge: 09/15/17 Attending physician: Jluis Duran Consults: 09/11/17 22:28 Consult Physician Routine Consulting Provider: Suman Lauren Consult Reason/Comments: medical management Do you want consulting provider notified?: Yes, Notify in am Primary care physician: Lewis Hernandez [facility] Course: Patient had her psychiatric evaluation done by Dr. Carroll, who put her on Abilify 5 mg in the morning and Cymbalta 30 mg a day, apparently for bipolar disorder PTSD UZMA etc. Since she became rather sleepy on Abilify in the morning it was changed to at bedtime the next day. I evaluated her on 2017, her diagnoses were rearranged, patient was counseled about the recommended treatment for her condition and she had agreed to continue Abilify 5 mg at bedtime, discontinue Cymbalta since it is not recommended for mood disorders and she agreed to try Minipress 1 mg at bedtime for her reported PTSD symptoms of nightmares. She continued to do well on these medications and therapy, continue to be free of suicide thoughts and agreed to continue her outpatient treatment. In view of all these it was agreed to discharge her. She also had her physical examination and psychosocial evaluation. She attended groups, interacted with peers and staff without any incident. Condition on discharge: This is a white ambulatory female with good hygiene. She does not show any psychomotor agitation or retardation. Her speech is spontaneous relevant and goal-directed. Her mood is cheerful and affect is appropriate. She continues not to show any exaggerated startle response and is able to speak very freely with me without any hesitation. She continues to deny suicide and homicide thoughts. She denies hallucinations and delusional thinking. She is well oriented with adequate memory concentration general knowledge etc. Her insight and judgment are improving. 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 ALLERGY to codeine and penicillins. Patient was advised and agreed to take her medications as prescribed, to learn better coping skills through therapy, not to drink alcohol or use drugs, not to drive or operate missionary if she feels sleepy, to inform her doctor if she gets , to call her psychiatrist or therapist if she develops suicidal thoughts and if she cannot get hold of them to go to nearest ER. Patient Condition at Discharge: Good Plan - Discharge Summary Discharge Rx Participant: Yes New Discharge Prescriptions: New ARIPiprazole [Abilify] 5 mg PO HS 30 Days #30 tab Prazosin [Minipress] 1 mg PO HS 30 Days #30 cap Discontinued clonazePAM [KlonoPIN] 0.5 mg PO HS Discharge Medication List ARIPiprazole [Abilify] 5 mg PO HS 30 Days #30 tab 09/15/17 [Rx] Prazosin [Minipress] 1 mg PO HS 30 Days #30 cap 09/15/17 [Rx] Follow up Appointment(s)/Referral(s): Yazan Saucedo MD [Primary Care Provider] - 1-2 days
== END 2017-09-15 15:32 | disposition home or self-care (01) | DRG 883 ==
LOC: EC 16:20 → 3MHU 19:24
PROVIDERS: ADMIT Psychiatry & Neurology Psychiatry; ATTEND Psychiatry & Neurology Psychiatry
DX: F60.9 Personality disorder, unspecified (principal); R45.851 Suicidal ideations; F17.200 Nicotine dependence, unspecified, uncomplicated; F41.1 Generalized anxiety disorder; F43.10 Post-traumatic stress disorder, unspecified; F90.9 Attention-deficit hyperactivity disorder, unspecified type; Z79.899 Other long term (current) drug therapy; Z85.41 Personal history of malignant neoplasm of cervix uteri; Z88.5 Allergy status to narcotic agent; Z90.49 Acquired absence of other specified parts of digestive tract; Z91.410 Personal history of adult physical and sexual abuse
CPT/HCPCS: 80053; 80061; 80306; 81003; 81025; 82075; 83036; 84443; 85025; 99285

== ENCOUNTER → 2017-11-10 | Outpatient (CLI) | payer MEDICARE, OTHER ==
--- NOTE | 2017-11-10 13:57 | CT ---
EXAMINATION TYPE: CT abdomen pelvis w con DATE OF EXAM: 11/10/2017 COMPARISON: None HISTORY: Pelvic pain fpr [address] DLP: 954.4 mGycm CONTRAST: CT scan of the abdomen and pelvis is performed with Oral Contrast and with IV Contrast, patient injec steve with 100 mL of Isovue 300. FINDINGS: LUNG BASES-: No visible nodule. No infiltrate. LIVER/GB: No calcified gallstones. No space occupying hepatic lesion. Biliary tree is of normal ca liber. PANCREAS: No inflammation. No distinct mass. SPLEEN: No splenic enlargement. No lesion seen. ADRENALS: No nodule. No thickening. KIDNEYS/BLADDER: No hydronephrosis. No nephrolithiasis. No distinct renal mass. Urinary bladder g rossly unremarkable. BOWEL: Normal appendix. Normal bowel caliber. No inflammation. GENITAL ORGANS: Left ovarian cystic lesion measuring 3.7 cm. Right ovary and uterus are unremarkable at this time. No sizable free fluid evident. LYMPH NODES: No greater than 1cm abdominal or pelvic lymph nodes are appreciated. AORTA: No significant abnormality. OSSEOUS STRUCTURES: No significant abnormality is seen. OTHER: No significant additional abnormality is seen. IMPRESSION: 1. Nonspecific left ovarian cystic lesion. Consider ultrasound correlation.
== END | disposition home or self-care (01) ==
LOC: RADCTMAIN 11:46
PROVIDERS: ATTEND Surgery
DX: N83.202 Unspecified ovarian cyst, left side (principal)
CPT/HCPCS: 74177; Q9967

== ENCOUNTER → 2017-11-23 | Outpatient (CLI) | payer MEDICARE, OTHER ==
--- NOTE | 2017-11-23 16:43 | US ---
EXAMINATION TYPE: US pelvis complete transvag DATE OF EXAM: 11/23/2017 COMPARISON: CT 11/10/2017 CLINICAL HISTORY: 37-year-old female N83.202 OVARIAN MASS. TECHNIQUE: Transabdominal sonographic images of the pelvis were acquired. Transvaginal sonographic images were medically necessary to better assess the following anatomy: Left-sided mass Date of LMP: today FINDINGS: EXAM MEASUREMENTS: Uterus: 7.0 x 2.9 x 4.5 cm Endometrial Stripe: 0.3 cm Right Ovary: 3.7 x 1.6 x 1.5 cm Left Ovary: 4.4 x 3.0 x 3.4 cm for a volume of 22.4 mL 1. Uterus: Anteverted. There is a heterogeneous area in the region of the cervix measuring 1.4 x 1.1 x.05 cm; the patient is having period today 2. Endometrium: wnl 3. Right Ovary: Small follicles are present within. 4. Left Ovary: Borderline enlarged secondary to a 3.9 x 3.6 x 4.0 cm cystic mass with large internal mural based nodule measuring 2.9 x 1.9 cm. The mass measured 4.1 x 3.7 cm on 11/10/2017 CT, not signi ficantly changed. 5. Bilateral Adnexa: see above for left 6. Posterior cul-de-sac: wnl IMPRESSION: 1. Complex cystic mass within the left ovary measuring 4.0 x 3.9 cm; there is a large 2.9 cm mural ba sed nodule within. This appears relatively similar in size as compared to the CT of 11/10/2017. A hemo rrhagic cyst with retractile clot is a differential consideration. Recommend follow-up in 6-8 weeks t o ensure involution. If the finding persists, a cystic epithelial ovarian neoplasm should be consider ed and surgical evaluation would be recommended. 2. A 1.4 x 1.1 cm heterogeneous area in the cervix. Correlate with physical exam findings and Pap sme ar results to exclude dysplasia or mass.
== END | disposition home or self-care (01) ==
LOC: RADUSWWP 14:45
PROVIDERS: ATTEND Surgery
DX: N83.202 Unspecified ovarian cyst, left side (principal); N88.8 Other specified noninflammatory disorders of cervix uteri
CPT/HCPCS: 76830; 76856

== ENCOUNTER 2017-12-27 11:30 | Emergency (ER) | payer MEDICARE, OTHER ==
[2017-12-27 11:38] VITALS: BP 115/73; PULSE 99; RESP 18; TEMP 97.8
--- NOTE | 2017-12-27 11:46 | ED ---
Upper Extremity HPI - General Chief Complaint: Extremity Injury, Upper Stated Complaint: left arm pain Time Seen by Provider: 12/27/17 11:39 Source: patient, RN notes reviewed Mode of arrival: ambulatory Limitations: no limitations - History of Present Illness Initial Comments: 37-year-old female presents emergency Department chief complaint of left arm pain. Patient states that she was playing kick ball with her nieces and nephews and states that she fell onto her left arm. Patient states that she has pain from her left elbow which her left shoulder. She has pain with any movement. Denies any head injury no loss conscious. Patient had no prior fractures to her left arm. Patient denies any paresthesias denies any back or neck discomfort. - Related Data Previous Rx's Medication Instructions Recorded ARIPiprazole [Abilify] 5 mg PO HS 30 Days #30 tab 09/15/17 Prazosin [Minipress] 1 mg PO HS 30 Days #30 cap 09/15/17 Hydrocodone/Acetaminophen [[place] 1 tab PO Q6HR PRN #12 tab 12/27/17 5-325] Allergies Allergy/AdvReac Type Severity Reaction Status Date / Time codeine Allergy Unknown Verified 12/27/17 11:38 Penicillins Allergy Unknown Verified 12/27/17 11:38 Review of Systems ROS Statement: Those systems with pertinent positive or pertinent negative responses have been documented in the HPI. ROS Other: All systems not noted in ROS Statement are negative. Past Medical History Additional Past Medical History / Comment(s): cervial CA History of Any Multi-Drug Resistant Organisms: None Reported Past Surgical History: Cholecystectomy Past Psychological History: ADD/ADHD, Anxiety, Bipolar, Depression Smoking Status: Current every day smoker General Exam Limitations: no limitations General appearance: alert, in no apparent distress Neck exam: Present: normal inspection, full ROM. Absent: tenderness, meningismus, lymphadenopathy Respiratory exam: Present: normal lung sounds bilaterally. Absent: respiratory distress, wheezes, rales, rhonchi, stridor Cardiovascular Exam: Present: regular rate, normal rhythm, normal heart sounds. Absent: systolic murmur, diastolic murmur, rubs, gallop, clicks Extremities exam: Present: other (Left arm there is tenderness to the left humerus there is no tenderness distal to the left elbow. Patient has full range of motion of the left elbow pain with range of motion left shoulder. Arm is neurovascularly intact.) Back exam: Present: full ROM. Absent: tenderness, paraspinal tenderness, vertebral tenderness Neurological exam: Present: alert, oriented X3, CN II-XII intact, reflexes normal. Absent: motor sensory deficit Course Vital Signs 12/27/17 11:37 Temperature 97.8 F Pulse Rate 99 Respiratory 18 Rate Blood Pressure 115/73 O2 Sat by Pulse 98 Oximetry Medical Decision Making - Medical Decision Making 37-year-old female presented for left arm injury. Patient has fracture of her humerus that is mildly angulated and displaced. Patient was placed in a sling she will follow-up with orthopedics tomorrow morning. Patient did receive IM pain meds in the emergency Department and was discharged on [place]. Disposition Clinical Impression: Closed left humeral fracture Disposition: HOME SELF-CARE Condition: Stable Instructions: Arm Fracture in Adults (ED) Additional Instructions: Please return to the Emergency Department if symptoms worsen or any other concerns. Prescriptions: Hydrocodone/Acetaminophen [[place] 5-325] 1 tab PO Q6HR PRN #12 tab PRN Reason: Pain Is patient prescribed a controlled substance at d/c from ED?: Yes When asked, does pt state using other controlled substances?: No If prescribed controlled substance>3 days was MAPS reviewed?: Prescribed <3 Days If opioid is for acute pain is fill amount 7 days or less?: Yes If Rx opioid, was Start Talking consent form obtained?: Yes Referrals: Yazan Saucedo MD [Primary Care Provider] - 1-2 days Kiarra Tyler DO [Doctor of Osteopathic Medicine] - 1-2 days Time of Disposition: 12:09
--- NOTE | 2017-12-27 12:00 | XR ---
EXAMINATION TYPE: XR humerus LT , 2 VIEWS DATE OF EXAM ORDERED: 12/27/2017 HISTORY: Pain. COMPARISON: None. FINDINGS: There is a mildly angulated and mildly displaced fracture of the neck of the left humerus no dislocation is evident. IMPRESSION: MILDLY ANGULATED AND DISPLACED FRACTURE OF THE NECK OF THE LEFT HUMERUS. CODE A: INITIAL ENCOUNTER FOR CLOSED FRACTURE.
[2017-12-27] MEDS ORDERED: HYDROmorphone 0.5 MG/0.5 ML SYRINGE IM STA (12:07)
== END 2017-12-27 12:21 | disposition home or self-care (01) ==
LOC: EC 11:30
DX: S42.302A Unspecified fracture of shaft of humerus, left arm, initial encounter for closed fracture (principal); F17.200 Nicotine dependence, unspecified, uncomplicated; Z85.41 Personal history of malignant neoplasm of cervix uteri; Z88.5 Allergy status to narcotic agent; Z88.0 Allergy status to penicillin; W19.XXXA Unspecified fall, initial encounter; Y93.6A Activity, physical games generally associated with school recess, summer camp and children
CPT/HCPCS: 73060; 99283; 96372; J1170

== ENCOUNTER → 2018-01-01 | Outpatient (CLI) | payer MEDICARE, OTHER ==
--- NOTE | 2018-01-01 17:00 | US ---
EXAMINATION TYPE: US pelvic complete DATE OF EXAM: 01/01/2018 COMPARISON: Ultrasound 11/23/2017 CLINICAL HISTORY: 37-year-old female N83.9 Follow up for left ovarian mass. TECHNIQUE: Transabdominal (TA). Date of LMP: 12/19/2017 FINDINGS: EXAM MEASUREMENTS: Uterus: 7.4 x 3.1 x 4.3 cm Endometrial Stripe: 1.0 cm Right Ovary: 3.6 x 3.3 x 2.8 cm Left Ovary: 2.8 x 2.6 x 2.3 cm Tile Applicator notes: Patient has recent broken arm and is scheduled for surgery on ThursdayJan 05. Pa calixto unable to lay flat for exam due to pain. Exam performed with patient semi upright. Transvaginal not performed due to patient's discomfort at current time. 1. Uterus: Anteverted wnl 2. Endometrium: wnl 3. Right Ovary: Dominant follicle or functional cyst measures 2.2 x 1.5 x 1.8 cm 4. Left Ovary: Heterogeneous area, possibly complex cyst measures 1.9 x 1.5 x 1.6 cm. Previous cysti c left ovarian mass measured 4.0 cm with a 2.9 cm internal nodule. 5. Bilateral Adnexa: wnl 6. Posterior cul-de-sac: no free fluid IMPRESSION: 1. Decreasing size of the complex left ovarian lesion currently measuring 1.9 cm versus 4.0 cm, previ ously. Additional follow-up in 6-8 weeks recommended to reassess. Possible involuting hemorrhagic cys t. 2. Previous heterogeneous area in the cervix not well depicted by transabdominal scanning. Correlate with interval workup.
== END | disposition home or self-care (01) ==
LOC: RADUSWWP 14:37
PROVIDERS: ATTEND Obstetrics & Gynecology
DX: N83.9 Noninflammatory disorder of ovary, fallopian tube and broad ligament, unspecified (principal)
CPT/HCPCS: 76856

== ENCOUNTER 2018-01-05 12:16 | Inpatient (IN) | payer MEDICARE, OTHER ==
[2018-01-01 14:35] VITALS: BMI 30.9
[~2018-01-05 12:16] MED LIST changes: +DEXAMETHASONE SOD PHOSPHATE 10 MG/ML 1 ML VIAL IV ONE; +LIDOCAINE 1% 20 ML VIAL (10MG/ML) FOR IV START INTRADERMA PRN; -METHOTREXATE SODIUM (PF) 25 MG/ML 2 ML VIAL IM ONE; +ONDANSETRON 4 MG/2 ML VIAL IVP ONE; +ceFAZolin IN SWFI 2 GM/20 ML SYRINGE IVP ONE
[2018-01-05] MEDS: LACTATED RINGERS 1,000 ML IV SCH (12:46)
[2018-01-05] MEDS ORDERED: MIDAZOLAM 2 MG/2 ML VIAL ONE ×2 (12:52→14:04)
[2018-01-05] MEDS ORDERED: fentaNYL (PF) 50 MCG/ML 2 ML AMP ONE ×2 (12:52→14:04)
[2018-01-05] MEDS ORDERED: fentaNYL (PF) 50 MCG/ML 2 ML AMP IVP ONE (13:07)
[2018-01-05] MEDS ORDERED: ROCURONIUM BROMIDE 10 MG/ML 10 ML VIAL IV ONE (14:04)
[2018-01-05] MEDS ORDERED: LIDOCAINE 1% INJ 10MG/ML (20 ML MDV) ONE (14:04)
[2018-01-05] MEDS ORDERED: ePHEDrine SULFATE/0.9% NACL/PF 50 MG/5 ML SYRINGE IV ONE (14:04)
[2018-01-05] MEDS ORDERED: SUCCINYLCHOLINE CHLORIDE 100 MG/5 ML SYR IV ONE (14:04)
[2018-01-05] MEDS ORDERED: NEOSTIGMINE 1 MG/ML 10 ML VIAL ONE (14:04)
[2018-01-05] MEDS ORDERED: GLYCOPYRROLATE 0.2 MG/ML 2 ML VIAL ONE (14:04)
[2018-01-05] MEDS ORDERED: PROPOFOL 10 MG/ML 20 ML VIAL IV ONE (14:04)
[2018-01-05] MEDS ORDERED: CLINDAMYCIN 600 MG in SODIUM CHLORIDE 0.9% 1,000 ML IRRIGATION ONE (14:40)
[2018-01-05] MEDS ORDERED: LACTATED RINGERS 1,000 ML IV ONE (15:48)
--- NOTE | 2018-01-05 16:21 | P.OP ---
Date of Procedure: 01/05/18 Preoperative Diagnosis: Displaced fracture left surgical neck humerus Postoperative Diagnosis: Displaced fracture left surgical neck humerus Procedure(s) Performed: Open reduction and internal fixation left proximal humerus Implants: [employer] left proximal humerus locking plate Anesthesia: GETA Surgeon: Walter Jo Melt Room Operator #1: Joellen Kay Estimated Blood Loss (ml): 150 Pathology: none sent Condition: stable Disposition: PACU Indications for Procedure: This is a 37-year-old female that sustained a displaced fracture of her left proximal humerus. He was initially treated with a hanging arm cast, this failed to place her proximal humerus in proper alignment. After discussing the surgical nonsurgical treatment options with her at length, I recommended open reduction and internal fixation of left proximal humerus. Informed consent was obtained. Operative Findings: The operative findings are consistent with a displaced surgical neck fracture of the left humerus Description of Procedure: The patient was seen in the preoperative area, consent was reviewed, and operative site was marked with a skin marker. Patient was then brought to the operating room and given preoperative antibiotics intravenously. A general anesthetic was administered by the anesthesia department. The patient was then placed in a beachchair position with the bony prominences well-padded and the head secured. The shoulder was then prepped and draped in the usual sterile fashion. A universal timeout was then performed, which confirmed the patient's name, surgical site, ALLERGIES, and consent. A standard deltopectoral approach was performed. The skin and subcutaneous tissue was sharply dissected down to the deltoid fascia. The cephalic vein was then identified and retracted medially. The deltopectoral interval was then utilized to expose the fracture. The fracture hematoma was then evacuated. Next, using fluoroscopy fracture was then manually reduced and checked with x- ray. The appropriate size plate was then placed on the lateral aspect of the proximal humerus and held provisionally proximally and distally with K wires. This was checked under fluoroscopy. Fracture was found to be reduced in good position alignment. Proximal and distal locking screws were then placed which afforded excellent fixation of the proximal humerus. Final x-rays were obtained which show concentric reduction of the fracture and good placement of the plate and screws. Shoulder was then irrigated with pulsatile lavage. The deltopectoral interval was then closed with #1 Vicryl as well. The subcutaneous tissues were closed with 2-0 Vicryl then Dermabond was placed on the skin. A sterile dressing was then applied, the patient was transported to the recovery room in an arm sling in stable condition. The technical administrative assistant ZORAIDA Leggett was required due the complexity of surgery and the need for a skilled registered nurse surgical services.
[2018-01-05] MEDS ORDERED: HYDROcodone/APAP 5-325MG 1 EACH TAB PO PRN (16:47)
[2018-01-05] MEDS ORDERED: HYDROmorphone 1 MG/ML 1 ML SYRINGE IVP PRN ×2 (16:47)
[2018-01-05] MEDS ORDERED: SENNOSIDES-DOCUSATE SODIUM 1 EACH TAB PO PRN (16:47)
[2018-01-05] MEDS ORDERED: ONDANSETRON 4 MG/2 ML VIAL IVP PRN (16:47)
[2018-01-05] MEDS ORDERED: hydrOXYzine PAMOATE 25 MG CAP PO PRN (16:47)
[2018-01-05 18:09] VITALS: RESP 16
[2018-01-05] MEDS: HYDROcodone/APAP 5-325MG 1 EACH TAB PO PRN ×2 (18:35→23:56)
[2018-01-05] MEDS ORDERED: PRAZOSIN 1 MG CAP PO SCH (22:30)
[2018-01-05] MEDS ORDERED: ARIPiprazole 5 MG TAB PO SCH (22:30)
[2018-01-05] MEDS: ceFAZolin IN SWFI 2 GM/20 ML SYRINGE IVP SCH (23:14)
[2018-01-06] MEDS: HYDROmorphone 1 MG/ML 1 ML SYRINGE IVP PRN ×3 (01:23→08:22)
[2018-01-06] MEDS: HYDROcodone/APAP 5-325MG 1 EACH TAB PO PRN ×2 (05:55→11:01)
[2018-01-06] MEDS: LACTATED RINGERS 1,000 ML IV SCH (07:32)
[2018-01-06 07:42] VITALS: BP 106/73; PULSE 81; TEMP 98.3
[2018-01-06] MEDS: ceFAZolin IN SWFI 2 GM/20 ML SYRINGE IVP SCH (08:23)
--- NOTE | 2018-01-06 08:48 | XR ---
Fluoroscopy INDICATION: Pain FINDINGS: Fluoroscopy time: 2 minutes 51 seconds. Images obtained: 2. IMPRESSIONS: 1. Documentation of fluoroscopy.
--- NOTE | 2018-01-06 08:48 | P.DS ---
Providers Date of admission: 01/05/18 12:16 Expected date of discharge: 01/06/18 Attending physician: Walter Jo Consults: 01/05/18 16:47 Consult Physician Routine Consulting Provider: Suman Lauren Consult Reason/Comments: medical management Do you want consulting provider notified?: Yes Primary care physician: Lewis Hernandez Charbal - Discharge Diagnosis(es) (1) Status post open reduction with internal fixation of fracture Current Visit: Yes Status: Acute (2) Closed left humeral fracture Current Visit: No Status: Acute Hospital Course: This is a 37-year-old female who sustained a displaced fracture of her left proximal humerus. Patient failed a course of outpatient therapy with a hanging arm cast due to continued poor alignment of the fracture. The patient presents for evaluation. After discussion and consideration patient elects to proceed with open reduction and internal fixation of the left proximal humerus. The patient is seen preoperatively by Dr. Jo and medically cleared for surgery by their primary care physician. Patient is admitted to [facility] on 01/05/2018 for total knee arthroplasty. The procedures performed without complication or sequelae. The patient is doing well postoperatively. Labs and vital signs are stable on day of discharge. On day of discharge patient's shoulder incision is healing well. There is minimal erythema. There is no drainage noted at this time. There is minimal soft tissue swelling to the shoulder. Patient has full wrist and hand motion without difficulty or pain. Neurovascular status to the left upper extremity is intact. Patient is discharged home in good condition. Please see med rec for accurate list of home medications. Plan - Discharge Summary New Discharge Prescriptions: New HYDROcodone/APAP 5-325MG [[place] 5-325] 1 - 2 tab PO Q4-6H PRN #84 tab PRN Reason: Pain Sennosides [Senokot] 1 tab PO BID #60 tablet No Action ARIPiprazole [Abilify] 5 mg PO HS 30 Days #30 tab Prazosin [Minipress] 1 mg PO HS 30 Days #30 cap Hydrocodone/Acetaminophen [[place] 5-325] 1 tab PO Q6HR PRN #12 tab PRN Reason: Pain Ibuprofen [Motrin] 600 mg PO Q8HR PRN PRN Reason: Pain Discharge Medication List ARIPiprazole [Abilify] 5 mg PO HS 30 Days #30 tab 09/15/17 [Rx] Prazosin [Minipress] 1 mg PO HS 30 Days #30 cap 09/15/17 [Rx] Hydrocodone/Acetaminophen [[place] 5-325] 1 tab PO Q6HR PRN #12 tab 12/27/17 [Rx] Ibuprofen [Motrin] 600 mg PO Q8HR PRN 01/01/18 [History] HYDROcodone/APAP 5-325MG [[place] 5-325] 1 - 2 tab PO Q4-6H PRN #84 tab 01/06/18 [ Rx] Sennosides [Senokot] 1 tab PO BID #60 tablet 01/06/18 [Rx] Follow up Appointment(s)/Referral(s): Walter Jo DO [Doctor of Osteopathic Medicine] - 10 Days Activity/Diet/Wound Care/Special Instructions: Maintain sling to left upper extremity at all times. Nonweightbearing to the left upper extremity. Rest and ice the left shoulder. Please take medications as prescribed. Dressing to stay in place for 10 days. May shower with dressing in place. Please follow-up with [facility]. Please call with any questions or concerns, . Discharge Disposition: HOME SELF-CARE
[2018-01-06 09:12] LABS: Basophils % (A) 0 %; Eosinophils # (A) 0.1 k/uL (0-0.7); Eosinophils % (A) 1 %; HGB 11.6 gm/dL (11.4-16.0); Lymphocytes # (A) 2.6 k/uL (1.0-4.8); Lymphocytes % (A) 19 %; MCH 30.1 pg (25.0-35.0); MCHC 33.2 g/dL (31.0-37.0); MCV 90.7 fL (80.0-100.0); Mean Platelet Volume 8.3; Monocytes # (A) 0.9 k/uL (0-1.0); Monocytes % (A) 7 %; Neutrophils # (A) 9.6 k/uL (1.3-7.7); Neutrophils % (A) 72 %; Platelet Count 287 k/uL (150-450); RBC 3.86 m/uL (3.80-5.40); RDW 13.5 % (11.5-15.5); WBC 13.4 k/uL (3.8-10.6)
[2018-01-06] MEDS ORDERED: HYDROcodone/APAP 7.5-325MG 1 EACH TAB PO PRN ×2 (11:13)
--- NOTE | 2018-01-06 14:13 | P.CONS ---
History of Present Illness - Reason for Consult Leukocytosis - History of Present Illness Patient is a pleasant 37-year-old female is admitted for internal fixation of the left proximal humerus. Patient's x-ray underwent surgery pain is well- controlled patient is bit drowsy from a narcotic and analgesia patient denied any dysuria of cough runny nose. Patient does have bibasilar crackles secondary to atelectasis. Patient was advised to use incentive spirometer. No fever no chills no dysuria. Patient does have leukocytosis which is reactive in nature. Review of Systems REVIEW OF SYSTEMS: CONSTITUTIONAL: No fever, no malaise, no fatigue. HEENT: No recent visual problems or hearing problems. Denied any sore throat. CARDIOVASCULAR: No chest pain, orthopnea, PND, no palpitations, no syncope. PULMONARY: No shortness of breath, no cough, no hemoptysis. GASTROINTESTINAL: No diarrhea, no nausea, no vomiting, no abdominal pain. Normoactive bowel sounds. NEUROLOGICAL: No headaches, no weakness, no numbness. HEMATOLOGICAL: Denies any bleeding or petechiae. GENITOURINARY: Denies any burning micturition, frequency, or urgency. MUSCULOSKELETAL/RHEUMATOLOGICAL: Denies any joint pain, swelling, or any muscle pain. ENDOCRINE: Denies any polyuria or polydipsia. The rest of the 14-point review of systems is negative. Past Medical History Past Medical History: Cancer, GERD/Reflux Additional Past Medical History / Comment(s): HX CERVICAL CANCER (IN HER 20'S). , VARICOSE VEINS, STATES SWELLING IN HER FEET., HX OF FX RIGHT FOOT X2 AND RIGHT HAND., CURRENTLY HAS FX LEFT HUMERUS- STATES CAST LEFT ARM. History of Any Multi-Drug Resistant Organisms: None Reported Past Surgical History: Cholecystectomy Additional Past Surgical History / Comment(s): PROCEDURE FOR CERVICAL CANCER. Past Anesthesia/Blood Transfusion Reactions: No Reported Reaction Past Psychological History: ADD/ADHD, Anxiety, Bipolar, Depression, PTSD Smoking Status: Current every day smoker Past Alcohol Use History: Occasional Additional Past Alcohol Use History / Comment(s): SMOKES 1/2 PPD., SMOKING SINCE 15 YEARS OLD. Past Drug Use History: None Reported Additional Drug Use History / Comment(s): HX OF METH. USE -DENIES ANY CURRENT DRUGS USE. - Past Family History Mother Family Medical History: No Reported History Medications and Allergies Home Medications Medication Instructions Recorded Confirmed Type ARIPiprazole [Abilify] 5 mg PO HS 30 Days #30 tab 09/15/17 01/05/18 Rx Prazosin [Minipress] 1 mg PO HS 30 Days #30 cap 09/15/17 01/05/18 Rx Hydrocodone/Acetaminophen [[place] 1 tab PO Q6HR PRN #12 tab 12/27/17 01/05/18 Rx 5-325] Ibuprofen [Motrin] 600 mg PO Q8HR PRN 01/01/18 01/05/18 History HYDROcodone/APAP 7.5-325MG [[place] 1 - 2 tab PO Q4-6H PRN #84 tab 01/06/18 Rx 7.5-325] Sennosides [Senokot] 1 tab PO BID #60 tablet 01/06/18 Rx Allergies Allergy/AdvReac Type Severity Reaction Status Date / Time Penicillins Allergy Rash/Hives Verified 01/01/18 14:20 Physical Exam Vitals: Vital Signs Temp Pulse Pulse Resp BP Pulse Ox 01/06/18 07:41 98.3 F 81 16 106/73 94 L 01/06/18 00:20 16 01/05/18 23:45 98.7 F 66 16 111/73 93 L 01/05/18 20:15 98 16 01/05/18 18:15 98 120/78 01/05/18 18:00 106 H 130/84 01/05/18 17:49 97.8 F 70 16 126/80 97 01/05/18 17:45 107 H 116/80 01/05/18 17:30 97.8 F 70 16 128/84 97 01/05/18 17:18 93 24 128/68 97 01/05/18 17:00 85 18 139/91 100 01/05/18 16:49 97.5 F L 67 16 122/66 94 L Intake and Output 01/05/18 01/06/18 01/06/18 22:59 06:59 14:59 Intake Total 400 960 Balance 400 960 Intake: IV 400 Intake, IV Titration 160 Amount Lactated Ringers 1,000 ml 160 @ 20 mls/hr IV .Q24H [facility] Rx#:[id number] Oral 800 Other: Voiding Method Toilet Toilet # Voids 1 3 Weight 81.647 kg PHYSICAL EXAMINATION: GENERAL: The patient is bit drowsy secondary to opiate analgesia and oriented x3 , not in any acute distress. Well developed, well nourished. HEENT: Pupils are round and equally reacting to light. EOMI. No scleral icterus. No conjunctival pallor. Normocephalic, atraumatic. No pharyngeal erythema. No thyromegaly. CARDIOVASCULAR: S1 and S2 present. No murmurs, rubs, or gallops. PULMONARY: Chest is clear to auscultation, no wheezing or crackles. ABDOMEN: Soft, nontender, nondistended, normoactive bowel sounds. No palpable organomegaly. MUSCULOSKELETAL: Deferred to orthopedic surgery EXTREMITIES: No cyanosis, clubbing, or pedal edema. NEUROLOGICAL: Gross neurological examination did not reveal any focal deficits. SKIN: No rashes. Results CBC & Chem 7: 01/06/18 07:52 Labs: Abnormal Lab Results - Last 24 Hours (Table) 01/06/18 Range/Units 07:52 WBC 13.4 H (3.8-10.6) k/uL Neutrophils # 9.6 H (1.3-7.7) k/uL Assessment and Plan Plan: leukocytosis without any signs or symptoms of infection, reactive in nature secondary to surgery. No further intervention at this time. -Bilateral atelectasis postoperative: Advised to use incentive spirometry -Left proximal humerus open reduction internal fixation, pain management the as per primary service
== END 2018-01-06 16:33 | disposition home or self-care (01) | DRG 493 ==
LOC: 2ORMAIN 12:16 → 3SUR 16:53
PROVIDERS: ADMIT Orthopaedic Surgery; ATTEND Orthopaedic Surgery
PROC: 0PSD04Z Reposition Left Humeral Head with Internal Fixation Device, Open Approach (ICD-10-PCS; principal; 2018-01-05 14:00)
DX: S42.212P Unspecified displaced fracture of surgical neck of left humerus, subsequent encounter for fracture with malunion (principal); J98.11 Atelectasis; W18.39XD Other fall on same level, subsequent encounter; D72.829 Elevated white blood cell count, unspecified; F17.200 Nicotine dependence, unspecified, uncomplicated; F43.10 Post-traumatic stress disorder, unspecified; F90.9 Attention-deficit hyperactivity disorder, unspecified type; K21.9 Gastro-esophageal reflux disease without esophagitis; Z85.41 Personal history of malignant neoplasm of cervix uteri; F31.9 Bipolar disorder, unspecified; Z79.899 Other long term (current) drug therapy; Z88.0 Allergy status to penicillin; Z83.3 Family history of diabetes mellitus; Z82.49 Family history of ischemic heart disease and other diseases of the circulatory system
CPT/HCPCS: 81025; 85025

== ENCOUNTER → 2019-05-27 | Outpatient (CLI) | payer MEDICARE, OTHER ==
--- NOTE | 2019-05-27 13:44 | US ---
EXAMINATION TYPE: Transabdominal DATE OF EXAM: 05/27/2019 1:32 PM COMPARISON: Most recent pelvic ultrasound January 01, 2018 CLINICAL HISTORY: Z36 Confirm dates,Z87.59 History of ectopic. Hx ectopic. No pain. Patient does no t remember what side the ectopic was on EXAM PERFORMED: Transvaginal (TV) and Transabdominal (TA) EXAM MEASUREMENTS: GESTATIONAL AGE / DATING Dates by LMP: (2 weeks/2 days) EDC: 02/15/2020 Dates by First Scan: No previous this is first scan Dates by Current Scan for: Unable to date by today's study MATERNAL ANATOMY Uterus: 6.9 x 4.3 x 3.7 cm Right Ovary: 4.3 x 4.0 x 3.6 cm Left Ovary: 2.8 x 1.5 x 1.8 cm Post CDS / Adnexa: no free fluid Presence of free fluid: no Presence of corpus luteal cyst: right ovarian lesion= 3.7 x 3.1 x 3.0 cm GESTATION / SURVEY IUP: No IUP seen at this time. Right adnexa mass visualized adjacent to right ovary = 1.5 x 1.5 x 1.4 cm Date of LMP: 05/11/2019, E1 Beta HcG (if available): Not available at this time No IUP seen at this time. Right adnexa mass visualized adjacent to right ovary = 1.5 x 1.5 x 1.4 cm . Heterogeneous anteverted uterus. Endometrial stripe measures 9 mm. No gestational sac, yolk sac, or f etal pole. No free fluid in pelvic cul-de-sac. Both ovaries seen. Within the right ovary there is a 3.1 cm oval lesion with internal echoes suspicio us for hemorrhagic cyst new from prior. Adjacent right ovary there is thick walled cystic lesion, cys tic component measures 7 mm. Finding could reflect gestational sac and ectopic . No yolk sac or pole present. Left ovary is normal in size with peripheral follicles. IMPRESSION: Nonvisualization of intrauterine . In addition there is right adnexal extraovari an thick-walled cystic lesion or mass increasing suspicion for developing ectopic . Critical results communicated to ordering physician office by ocular care technologist shortly after e xam was dictated.
== END | disposition home or self-care (01) ==
LOC: RADUSWWP 12:58
PROVIDERS: ATTEND Obstetrics & Gynecology
DX: Z36.9 Encounter for antenatal screening, unspecified (principal); Z3A.00 Weeks of gestation of pregnancy not specified; Z87.59 Personal history of other complications of pregnancy, childbirth and the puerperium
CPT/HCPCS: 76801; 76817

== ENCOUNTER 2019-05-28 23:49 | Inpatient (IN) | payer MEDICARE, OTHER ==
[2019-05-29] MEDS ORDERED: SODIUM CHLORIDE 0.9% 500 ML 500 ML IV STA (00:46)
[2019-05-29 01:10] LABS: Basophils # (A) 0.1 k/uL (0-0.2); Basophils % (A) 1 %; Eosinophils # (A) 0.4 k/uL (0-0.7); Eosinophils % (A) 4 %; HCT 41.5 % (34.0-46.0); HGB 14.1 gm/dL (11.4-16.0); Lymphocytes # (A) 3.9 k/uL (1.0-4.8); Lymphocytes % (A) 38 %; MCH 30.6 pg (25.0-35.0); MCHC 33.9 g/dL (31.0-37.0); MCV 90.3 fL (80.0-100.0); Mean Platelet Volume 7.8; Monocytes # (A) 0.6 k/uL (0-1.0); Monocytes % (A) 6 %; Neutrophils # (A) 5.1 k/uL (1.3-7.7); Neutrophils % (A) 49 %; Platelet Count 253 k/uL (150-450); RDW 12.9 % (11.5-15.5); WBC 10.3 k/uL (3.8-10.6)
--- NOTE | 2019-05-29 01:15 | US ---
EXAMINATION TYPE: Transabdominal DATE OF EXAM: 05/29/2019 12:58 AM COMPARISON: 05/27/2019 CLINICAL HISTORY: history of ectopic . Hx of ectopic follow to previous us. EXAM PERFORMED: Transvaginal (TV) EXAM MEASUREMENTS: GESTATIONAL AGE / DATING Physician Established: Not yet established ( Dates by LMP: (2 weeks/4 days) EDC: 02/15/2020 Dates by First Scan: (2 weeks/0 days) EDC: 02/15/2020 Dates by Current Scan for: No IUP seen at this time MATERNAL ANATOMY Uterus: 6.8 x 3.5 x 4.5 cm Right Ovary: 4.2 x 3.5 x 4.1cm. Cystic area seen 2.6 x 3.0 x 2.9 cm. Left Ovary: 2.6 x 1.8 x 2.5 cm Post CDS / Adnexa: Right adnexal mass adjacent to ovary 1.6 x 1.7 x 1.6cm as seen on previous exam tw o days ago. Presence of free fluid: no GESTATION / SURVEY IUP: No IUP seen at this time Beta HcG (if available): Taken in [place] today 2,900. IMPRESSION: Empty uterus. Thick walled cyst in the right adnexa could be early ectopic . Fluid component measures 4 x 3 cm. No evidence of ovarian torsion. No fetus seen. No significant change compared to exam 2 days ago.
[2019-05-29 01:20] LABS: African American GFR (CKD) >90 (>60 ml/min/1.73 sqM); Anion Gap 7 mmol/L; Blood Urea Nitrogen 12 mg/dL (7-17); Calcium 9.3 mg/dL (8.4-10.2); Carbon Dioxide 25 mmol/L (22-30); Chloride 108 mmol/L (98-107); Glucose 89 mg/dL (74-99); Non-African American GFR(CKD) >90 (>60 ml/min/1.73 sqM); Potassium 4.1 mmol/L (3.5-5.1); Sodium 140 mmol/L (137-145)
[2019-05-29 01:24] LABS: Partial Thromboplastin Time 25.5 sec (22.0-30.0); Prothrombin Time 10.4 sec (9.0-12.0)
--- NOTE | 2019-05-29 01:46 | ED ---
Abdominal Pain HPI - General Chief Complaint: Abdominal Pain Stated Complaint: ectopic Time Seen by Provider: 05/29/19 00:02 Source: EMS Mode of arrival: EMS Limitations: no limitations - History of Present Illness Initial Comments: This patient is a 38-year-old woman who is known to have ectopic . She states that she has had evaluation, and she is due to have surgery for her condition with Dr. Powell, in the next couple of days. Patient states that her pain had worsened this evening so she went to the outside hospital where she was seen and given that the pain had worsened she was transferred here as ultrasound was not available at the other facility. The patient was also given some analgesia. The patient states that her pain has resolved now. She states that the pain had been somewhat intermittent anyways. He would become severe for number of minutes and resolved. She describes as a burning and cramping feeling. She states that she is feeling pretty well now. MD Complaint: abdominal pain -: hour(s) Location: RLQ Radiation: none Severity: severe Quality: cramping, burning Consistency: now resolved Improves With: nothing Worsens With: nothing Associated Symptoms: denies other symptoms - Related Data Home Medications Medication Instructions Recorded Confirmed Ibuprofen [Motrin] 600 mg PO Q8HR PRN 01/01/18 05/29/19 Allergies Allergy/AdvReac Type Severity Reaction Status Date / Time Penicillins Allergy Rash/Hives Verified 05/29/19 04:14 Review of Systems ROS Statement: Those systems with pertinent positive or pertinent negative responses have been documented in the HPI. ROS Other: All systems not noted in ROS Statement are negative. Constitutional: Denies: fever, chills Respiratory: Denies: cough, dyspnea Cardiovascular: Denies: chest pain, palpitations, syncope Gastrointestinal: Reports: abdominal pain. Denies: nausea, vomiting, diarrhea, constipation Genitourinary: Denies: dysuria, hematuria, discharge, abnormal menses Musculoskeletal: Denies: back pain Skin: Denies: rash Past Medical History Past Medical History: Cancer, GERD/Reflux Additional Past Medical History / Comment(s): HX CERVICAL CANCER (IN HER 20'S)., VARICOSE VEINS, STATES SWELLING IN HER FEET., HX OF FX RIGHT FOOT X2 AND RIGHT HAND., CURRENTLY HAS FX LEFT HUMERUS- STATES CAST LEFT ARM. History of Any Multi-Drug Resistant Organisms: None Reported Past Surgical History: Cholecystectomy Additional Past Surgical History / Comment(s): PROCEDURE FOR CERVICAL CANCER. Past Anesthesia/Blood Transfusion Reactions: No Reported Reaction Past Psychological History: ADD/ADHD, Anxiety, Bipolar, Depression, PTSD Smoking Status: Current every day smoker Past Alcohol Use History: Occasional Past Drug Use History: None Reported - Past Family History Mother Family Medical History: No Reported History General Exam Limitations: no limitations General appearance: alert, in no apparent distress Head exam: Present: atraumatic, normocephalic Eye exam: Present: normal appearance. Absent: scleral icterus, conjunctival injection ENT exam: Present: normal oropharynx Respiratory exam: Present: normal lung sounds bilaterally. Absent: respiratory distress, wheezes, rales, rhonchi, stridor Cardiovascular Exam: Present: regular rate, normal rhythm, normal heart sounds. Absent: systolic murmur, diastolic murmur, rubs, gallop GI/Abdominal exam: Present: soft, normal bowel sounds. Absent: distended, tenderness, guarding, rebound, rigid, mass, pulsatile mass, hernia Extremities exam: Present: normal inspection, normal capillary refill. Absent: pedal edema, calf tenderness Back exam: Present: normal inspection. Absent: CVA tenderness (R), CVA tenderness (L) Neurological exam: Present: alert Skin exam: Present: warm, dry, intact, normal color. Absent: rash Course Vital Signs 05/28/19 05/29/19 05/29/19 23:53 02:45 03:11 Temperature 98.5 F 97.7 F Pulse Rate 61 54 L 63 Respiratory 18 17 16 Rate Blood Pressure 124/85 124/85 137/96 O2 Sat by Pulse 95 94 L 95 Oximetry Medical Decision Making - Medical Decision Making Patient is a 38-year-old woman transferred here to have ultrasound of her pelvis given that she has known ectopic and had worsening pain. The ultrasound here does not show an increase in size. There is no free fluid in the abdomen nor any evidence of bleeding. She is not having signs and symptoms of orthostasis or any other evidence of bleeding. I discussed the findings with Dr. Sanchez, covering for Dr. Powell. The patient initially felt like she had wanted to go home but that she did have another brief episode of pain that also was improving, and requested to stay. Dr. Sanchez did admit patient for pain control and to further observe. - Lab Data Result diagrams: 05/29/19 00:55 05/29/19 00:55 Lab Results 05/29/19 05/29/19 05/29/19 Range/Units 00:10 00:55 00:55 WBC 10.3 (3.8-10.6) k/uL RBC 4.60 (3.80-5.40) m/uL Hgb 14.1 (11.4-16.0) gm/dL Hct 41.5 (34.0-46.0) % MCV 90.3 (80.0-100.0) fL MCH 30.6 (25.0-35.0) pg MCHC 33.9 (31.0-37.0) g/dL RDW 12.9 (11.5-15.5) % Plt Count 253 (150-450) k/uL Neutrophils % 49 % Lymphocytes % 38 % Monocytes % 6 % Eosinophils % 4 % Basophils % 1 % Neutrophils # 5.1 (1.3-7.7) k/uL Lymphocytes # 3.9 (1.0-4.8) k/uL Monocytes # 0.6 (0-1.0) k/uL Eosinophils # 0.4 (0-0.7) k/uL Basophils # 0.1 (0-0.2) k/uL PT (9.0-12.0) sec INR (<1.2) APTT (22.0-30.0) sec Sodium 140 (137-145) mmol/L Potassium 4.1 (3.5-5.1) mmol/L Chloride 108 H (98-107) mmol/L Carbon Dioxide 25 (22-30) mmol/L Anion Gap 7 mmol/L BUN 12 (7-17) mg/dL Creatinine 0.66 (0.52-1.04) mg/dL Est GFR (CKD-EPI)AfAm >90 (>60 ml/min/1.73 sqM) Est GFR (CKD-EPI)NonAf >90 (>60 ml/min/1.73 sqM) Glucose 89 (74-99) mg/dL Calcium 9.3 (8.4-10.2) mg/dL Blood Type A Negative Blood Type Recheck A Neg Bld Type Recheck Status No 05/29/19 Range/Units 00:55 WBC (3.8-10.6) k/uL RBC (3.80-5.40) m/uL Hgb (11.4-16.0) gm/dL Hct (34.0-46.0) % MCV (80.0-100.0) fL MCH (25.0-35.0) pg MCHC (31.0-37.0) g/dL RDW (11.5-15.5) % Plt Count (150-450) k/uL Neutrophils % % Lymphocytes % % Monocytes % % Eosinophils % % Basophils % % Neutrophils # (1.3-7.7) k/uL Lymphocytes # (1.0-4.8) k/uL Monocytes # (0-1.0) k/uL Eosinophils # (0-0.7) k/uL Basophils # (0-0.2) k/uL PT 10.4 (9.0-12.0) sec INR 1.0 (<1.2) APTT 25.5 (22.0-30.0) sec Sodium (137-145) mmol/L Potassium (3.5-5.1) mmol/L Chloride (98-107) mmol/L Carbon Dioxide (22-30) mmol/L Anion Gap mmol/L BUN (7-17) mg/dL Creatinine (0.52-1.04) mg/dL Est GFR (CKD-EPI)AfAm (>60 ml/min/1.73 sqM) Est GFR (CKD-EPI)NonAf (>60 ml/min/1.73 sqM) Glucose (74-99) mg/dL Calcium (8.4-10.2) mg/dL Blood Type Blood Type Recheck Bld Type Recheck Status Disposition Clinical Impression: Ectopic Disposition: ADMITTED IP TO [facility] Condition: Good Is patient prescribed a controlled substance at d/c from ED?: No
[2019-05-29] MEDS ORDERED: ACETAMINOPHEN TAB 325 MG TAB PO PRN (02:33)
[2019-05-29] MEDS ORDERED: NALOXONE 0.4 MG/ML 1 ML VIAL IV PRN (02:33)
[2019-05-29] MEDS: SODIUM CHLORIDE 0.9% 1,000 ML IV SCH ×3 (02:42→14:18)
[2019-05-29] MEDS: MORPHINE SULFATE 4 MG/ML SYRINGE IV PRN ×2 (02:49→14:17)
[2019-05-29] MEDS ORDERED: MORPHINE SULFATE 4 MG/ML SYRINGE IV STA (03:27)
[2019-05-29] MEDS: ONDANSETRON 4 MG/2 ML VIAL IVP PRN ×2 (03:32→11:16)
[2019-05-29 06:02] VITALS: RESP 14
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
[2019-05-29] MEDS ORDERED: IV FLUID CONTINUATION 1,000 ML IV ONE ×2 (11:05→11:56)
[2019-05-29] MEDS: fentaNYL (PF) 50 MCG/ML 2 ML AMP IV ONE ×2 (11:16→11:55)
[2019-05-29] MEDS ORDERED: Rhogam IMMUNE GLOBULIN 1,500 UNIT/1 ML IM ONE (11:18)
[2019-05-29] MEDS ORDERED: MIDAZOLAM 2 MG/2 ML VIAL ONE (11:55)
[2019-05-29] MEDS ORDERED: LIDOCAINE 1% INJ 10MG/ML (20 ML MDV) ONE (11:55)
[2019-05-29] MEDS ORDERED: KETOROLAC 30 MG/ML 1 ML VIAL ONE (11:55)
[2019-05-29] MEDS ORDERED: SUCCINYLCHOLINE CHLORIDE 100 MG/5 ML SYR IV ONE (11:55)
[2019-05-29] MEDS ORDERED: PROPOFOL 10 MG/ML 20 ML VIAL IV ONE (11:55)
[2019-05-29] MEDS ORDERED: ROCURONIUM BROMIDE 10 MG/ML 5 ML VIAL IV ONE (11:55)
[2019-05-29] MEDS ORDERED: GLYCOPYRROLATE 0.2 MG/ML 2 ML VIAL ONE (11:55)
[2019-05-29] MEDS ORDERED: fentaNYL (PF) 50 MCG/ML 2 ML AMP ONE (11:55)
[2019-05-29] MEDS ORDERED: NEOSTIGMINE 1 MG/ML 10 ML VIAL ONE (11:55)
[2019-05-29] MEDS ORDERED: BUPIVACAINE (PF) 0.25% 30 ML VIAL SQ ONE ×2 (12:15)
[2019-05-29] MEDS: MEPERIDINE 50 MG/ML SYRINGE IVP ONE ×2 (13:25→13:35)
[2019-05-29] MEDS: HYDROmorphone 0.5 MG/0.5 ML SYRINGE IVP ONE ×2 (13:40→13:48)
--- NOTE | 2019-05-29 13:54 | P.OP ---
Date of Procedure: 05/29/19 Preoperative Diagnosis: Probable right ectopic Pelvic pain Postoperative Diagnosis: Right tubal ectopic Right ovarian cyst Endometriosis Pelvic pain Procedure(s) Performed: Laparoscopy with right partial salpingectomy, drainage of right ovarian cyst, and ablation of endometriosis Anesthesia: BROOKE Surgeon: Tamanna Sanchez Estimated Blood Loss (ml): 10 Pathology: other (Portion of right fallopian tube with ectopic ) Condition: stable Disposition: floor Indications for Procedure: This is a 38 year old female 2 para 0 who presented early this morning with intermittent right lower quadrant pain that became more intense. She has been diagnosed with an ectopic by Dr. Powell on Thursday and was scheduled for surgery on Thursday. She came in because of the pain and therefore was admitted and observed until this morning. A repeat beta hCG again did not double and ultrasound showed nothing in the uterus. Ultrasound also showed a complex area next to the right ovary. There was no free fluid noted. Patient has signed consent for laparoscopy with possible salpingectomy, possible oophorectomy, and possible exploratory laparotomy. I have discussed the risks, benefits, and alternative therapies for the above- mentioned procedure and for both sedation/anesthesia as well as necessary blood products administration, if indicated, as they pertain to this patient. The patient has indicated her understanding and acceptance of the risks and procedures discussed. Operative Findings: Right tube is dilated with ectopic . Left tube appears normal caliber but is slightly tortuous. Left ovary appears normal. Right ovary is enlarged slightly with a hemorrhagic cyst. Appendix is visualized and appears normal. There is an adhesion of omentum to the right fallopian tube and also endometriosis implants noted on the right posterior uterus. Description of Procedure: The patient is taken to the operating room where she is placed in the dorsal lithotomy position. She is prepped and draped in the normal sterile fashion. Her bladder is drained with a catheter and then removed. Examination is performed under anesthesia. Uterus is found to be anteverted with no adnexal masses palpated. Next a bivalve speculum was placed in the patient's vagina. A single-tooth tenaculum is used to grasp the anterior lip of the cervix. No bleeding is noted. Next the cervix is slightly dilated with Chavez dilators until a sound could be placed. Uterus is sounded to 8 cm. A kroner uterine manipulator is inserted into the endometrial cavity and the balloon is inflated. Single-tooth tenaculum is removed and all other instruments are removed. Gloves are changed and attention is turned to the abdomen. A small stab incision is made in the under fold of the umbilicus. A towel clip was placed above the umbilicus for retraction. A 5 mm disposable blade this trocar is then inserted into the peritoneal cavity. The insert is removed and the camera is replaced. Pneumoperitoneum was achieved with CO2 gas. Next a small stab incision is made suprapubically and a 5 mm disposable blade this trocar is inserted under direct visualization. A probe was inserted and pelvic contents are inspected. Next a small stab incision is made in the right lower quadrant and a 5 mm disposable bladeless trocar is inserted into the area. Next a grasper is inserted through the inferior trocar and the tube is grasped away from other structures. A LigaSure device is placed in the right lower quadrant trocar and the adhesions are removed from the tube to the omentum using cautery and cutting. Next the portion of the fallopian tube that had the ectopic was grasped with the LigaSure, cauterized, and then cut. The remaining portion of the fallopian tube is then also grasped, cauterized, and then cut. Once the tube with the ectopic and it is completely removed, it is placed below the uterus for removal later. Further monopolar cautery is performed for hemostasis. Copious irrigation is carried out with warm saline and excellent hemostasis is noted. Next a aspirating needle is then inserted and the right ovarian cyst is then stabbed with a needle and some serosanguineous fluid is removed. This is discarded. The cyst does go down. A flat paddle instrument is then used to touch up against the endometriosis in the right posterior cul-de-sac and this is cauterized. Pictures are taken. Irrigation is carried out. Next the Endo Catch sac is placed through the upper trocar the camera was then placed and a side-port and a grasper is used to grasp the portion of the tube with the ectopic and place it into the Endo Catch bag. The bag is closed and then brought up to the incision on the umbilical incision. A hemostat is used to slightly open the incision further and the Endo Catch sac with specimen is removed. Next the trocar is replaced. Copious irrigation is again carried out and excellent hemostasis is noted. Next the 2 inferior tro chars are removed under direct visualization. The pneumoperitoneum is released and then the upper trocar is removed. Incision sites were then closed with 4-0 undyed Vicryl suture in a subcuticular fashion. The inferior incision is closed also with interrupted stitch for hemostasis. Incision sites are then injected with quarter percent Marcaine. Approximately 7 mL are used. Next the balloon i s released on the kroner uterine manipulator and the manipulator is removed. Minimal bleeding is noted. All sponge and needle counts are correct. The patient is then taken to recovery room in stable condition.
[2019-05-29 16:22] VITALS: BP 127/65; PULSE 54; TEMP 97.5
--- NOTE | 2019-06-08 13:32 | P.DS ---
Providers Date of admission: 05/29/19 02:36 Expected date of discharge: 05/29/19 Attending physician: Tamanna Sanchez Primary care physician: Nonstaff - Discharge Diagnosis(es) (1) Ectopic Status: Acute Hospital Course: Please see H&P and operative report for details of patient admission. Following a short recovery after surgery, patient is discharged to home. Scheduled to followup with Dr. Powell. Routine postop instructions given. Procedures: Laparoscopy with R. partial salpingectomy due to ectopic , drainage R. ovarian cyst, ablation of endometriosis Patient Condition at Discharge: Good Plan - Discharge Summary New Discharge Prescriptions: New HYDROcodone/APAP 5-325MG [[place] 5-325] 1 tab PO Q4HR PRN 3 Days #18 tab PRN Reason: Moderate To Severe Pain Continue Ibuprofen [Motrin] 600 mg PO Q8HR PRN PRN Reason: Pain Discharge Medication List Ibuprofen [Motrin] 600 mg PO Q8HR PRN 01/01/18 [History] HYDROcodone/APAP 5-325MG [[place] 5-325] 1 tab PO Q4HR PRN 3 Days #18 tab 05/29/19 [Rx] Follow up Appointment(s)/Referral(s): González Powell DO [Doctor of Osteopathic Medicine] - 1 Week Nonstaff,Physician [Primary Care Provider] - 1-2 days Activity/Diet/Wound Care/Special Instructions: Activity as tolerated. Diet as tolerated. May shower, but no tub baths for 1 week. No intercourse until seen by Dr. Powell. Discharge Disposition: HOME SELF-CARE
== END 2019-05-29 18:00 | disposition home or self-care (01) | DRG 819 ==
LOC: EC 23:49 → 4FBP 05-29 02:36 → OBSVTOIN 05-29 02:36 → INTOOBSV 05-29 02:36 → 4FBP 05-29 02:36 → UNDOADMOB 05-29 02:36 → UNDODISIN 05-29 18:00
PROVIDERS: ADMIT Obstetrics & Gynecology; ATTEND Obstetrics & Gynecology
PROC: 0U904ZZ Drainage of Right Ovary, Percutaneous Endoscopic Approach (ICD-10-PCS; principal; 2019-05-29 11:00)
PROC: 0UB54ZZ Excision of Right Fallopian Tube, Percutaneous Endoscopic Approach (ICD-10-PCS; principal; 2019-05-29 11:00)
PROC: 0U594ZZ Destruction of Uterus, Percutaneous Endoscopic Approach (ICD-10-PCS; principal; 2019-05-29 11:00)
PROC: 10T24ZZ Resection of Products of Conception, Ectopic, Percutaneous Endoscopic Approach (ICD-10-PCS; principal; 2019-05-29 11:00)
DX: O00.101 Right tubal pregnancy without intrauterine pregnancy (principal); O09.529 Supervision of elderly multigravida, unspecified trimester; N80.9 Endometriosis, unspecified; K66.0 Peritoneal adhesions (postprocedural) (postinfection); F17.210 Nicotine dependence, cigarettes, uncomplicated; F31.9 Bipolar disorder, unspecified; F43.10 Post-traumatic stress disorder, unspecified; F90.9 Attention-deficit hyperactivity disorder, unspecified type; N83.201 Unspecified ovarian cyst, right side; Z85.41 Personal history of malignant neoplasm of cervix uteri; Z90.49 Acquired absence of other specified parts of digestive tract; Z56.0 Unemployment, unspecified; B00.9 Herpesviral infection, unspecified; Z91.410 Personal history of adult physical and sexual abuse; Z88.0 Allergy status to penicillin
CPT/HCPCS: 36415; 76801; 76817; 80048; 84702; 85025; 85610; 85730; 86850; 86900; 86901; 88305; 96361; 96374; 96375; 99285

== ENCOUNTER 2020-01-02 06:17 | Day surgery (SDC) | payer MEDICARE, OTHER ==
[2019-12-27 14:25] VITALS: BMI 29.2
[~2020-01-02 06:17] MED LIST changes: +LACTATED RINGERS 1,000 ML IV SCH; -LIDOCAINE 1% 20 ML VIAL (10MG/ML) FOR IV START INTRADERMA PRN; +Pre Op ABX Message 1 EACH MISC MISCELLANE ONE; -ceFAZolin IN SWFI 2 GM/20 ML SYRINGE IVP ONE
[2020-01-02 06:54] VITALS: RESP 16
[2020-01-02] MEDS ORDERED: ONDANSETRON 4 MG/2 ML VIAL ONE (06:56)
[2020-01-02] MEDS ORDERED: LIDOCAINE 1% (10MG/ML) FOR IV START INTRADERMA ONE (07:07)
[2020-01-02] MEDS ORDERED: DEXAMETHASONE SOD PHOSPHATE 10 MG/ML 1 ML VIAL IV ONE (07:08)
[2020-01-02] MEDS ORDERED: ROCURONIUM BROMIDE 10 MG/ML 5 ML VIAL IV ONE (07:25)
[2020-01-02] MEDS ORDERED: LIDOCAINE 1% INJ 10MG/ML (20 ML MDV) ONE (07:25)
[2020-01-02] MEDS ORDERED: PROPOFOL 10 MG/ML 20 ML VIAL IV ONE (07:25)
[2020-01-02] MEDS ORDERED: SUCCINYLCHOLINE CHLORIDE 100 MG/5 ML SYR IV ONE (07:25)
[2020-01-02] MEDS ORDERED: GLYCOPYRROLATE 0.2 MG/ML 2 ML VIAL ONE (07:25)
[2020-01-02] MEDS ORDERED: NEOSTIGMINE 1 MG/ML 10 ML VIAL ONE (07:25)
[2020-01-02] MEDS ORDERED: fentaNYL (PF) 50 MCG/ML 2 ML AMP ONE (07:25)
[2020-01-02] MEDS ORDERED: KETOROLAC 15 MG/ML 1 ML VIAL ONE (07:25)
[2020-01-02] MEDS ORDERED: MIDAZOLAM 2 MG/2 ML VIAL ONE (07:25)
[2020-01-02] MEDS ORDERED: BUPIVACAINE (PF) 0.25% 30 ML VIAL SQ ONE ×2 (07:26→08:00)
--- NOTE | 2020-01-02 08:07 | P.OP ---
Date of Procedure: 01/02/20 Preoperative Diagnosis: Family planning Postoperative Diagnosis: Same Procedure(s) Performed: Laparoscopic tubal occlusion of the left fallopian tube Anesthesia: BROOKE Surgeon: González Powell Estimated Blood Loss (ml): 4 Urine output (ml): 40 Pathology: none sent Condition: stable Disposition: same day Operative Findings: Right fallopian tube Hugo had partial salpingectomy with essentially from the uterine cornu up until the fimbriated end being excised from an ectopic left fallopian tube had a large kink at the ampulla going into the fimbriated and fallopian tube occlusion with Filshie clips Description of Procedure: Patient was taken to the operating suite where a general anesthetic was found be adequate. She was prepped and draped in normal sterile fashion and placed in dorsal lithotomy position. Initially a speculum was inserted into the vagina into lip surface identified and grasped with a single-tooth tenaculum and was dilated. Sounded to 8 cm and a uterine manipulator was inserted without difficu lty. Other incidents were then removed and a red rubber catheter was used to drain the bladder of urine. At this point closer changed and attention was turned to the abdominal portion procedure where 2 mL of quarter percent Marcaine was injected periumbilically. Through this injected anesthetic a 5 mm skin incision was made and through this incision, under direct visualization,, a trocar and sleeve were inserted. Once peritoneal placement was assured gas was allowed to fully insufflate the abdomen and patient was then placed in steep Trendelenburg position. Second trocar and sleeve were then inserted through 8 mm skin incision 3 cm above the pubic symphysis in the midline. Observations pelvis were noted. There were some scattered endometriosis but she did not have any complaints of this and they were not treated. Right fallopian tube was essentially 80-90% removed with the fimbriated end LEFT. Left fallopian tube had a kink at the ampulla going to the fimbriated and and a Filshie clip was applied proximal to this excellent closure felt to be obtained. At this point incidents removed, gas was allowed to expel from the abdomen 5 deep breaths were provided. Patient was then flattened and 4-0 Vicryl was used to close incision subcuticularly. The remaining quarter percent Marcaine was then injected around these incisions incidents removed from the vagina. Sponge, lap needle counts all correct 2. Patient was then taken to the recovery room in stable and satisfactory condition. Plan - Discharge Summary Discharge Rx Participant: Yes New Discharge Prescriptions: New Ibuprofen [Motrin] 600 mg PO Q6HR PRN #30 tab PRN Reason: Pain HYDROcodone/APAP 5-325MG [[place] 5-325] 1 tab PO Q4HR PRN #30 tab PRN Reason: Pain No Action "Diet Pill" 1 tab PO DAILY Discharge Medication List "Diet Pill" 1 tab PO DAILY 12/27/19 [History] HYDROcodone/APAP 5-325MG [[place] 5-325] 1 tab PO Q4HR PRN #30 tab 01/02/20 [Rx] Ibuprofen [Motrin] 600 mg PO Q6HR PRN #30 tab 01/02/20 [Rx] Follow up Appointment(s)/Referral(s): González Powell DO [Doctor of Osteopathic Medicine] - 2 Weeks Activity/Diet/Wound Care/Special Instructions: No heavy lifting, limit stairs and driving, and pelvic rest. If any high temperatures, heavy bleeding, or severe pain call my office Discharge Disposition: HOME SELF-CARE
--- NOTE | 2020-01-02 08:08 | P.HPOB ---
History of Present Illness H&P Date: 12/28/19 Chief Complaint: Family planning Lee Ann is a 39-year-old female who has had 2 prior ectopic pregnancies and desires permanent sterilization. She is scheduled for laparoscopic tubal occlusion with Filshie clips. Risks/benefits/alternatives to this procedure were reviewed with the patient in detail and did include but were not limited to bleeding and infection, damage to bladder, damage to bowel, vascular injuries, nerve injuries potential need for further surgery. She was explained there is a failure rate some are between 2 and 4% thousand and that this procedure is designed to be permanent and not first. Past medical history is otherwise seen him for ADHD past surgical history cholecystectomy. Medications Abilify placed Vicodin Valtrex social history tobacco abuse and occasional call use family history cancer and heart disease On physical exam vital signs are stable and afebrile. Heart regular, lungs clear, extremities without pain. Abdomen soft but obese positive bowel sounds are noted no pain or masses. Pelvic exam is otherwise unremarkable. Past Medical History Past Medical History: Cancer, GERD/Reflux Additional Past Medical History / Comment(s): HX OF FX RIGHT FOOT X2, RIGHT HAND, left humerus. Hx cervical cancer in her 20's. History of Any Multi-Drug Resistant Organisms: None Reported Past Surgical History: Cholecystectomy Additional Past Surgical History / Comment(s): Right Tubal Ligation. PROCEDURE FOR CERVICAL precancer cells. Past Anesthesia/Blood Transfusion Reactions: No Reported Reaction Past Psychological History: ADD/ADHD, Anxiety, Bipolar, Depression, PTSD Smoking Status: Current every day smoker Past Alcohol Use History: Rare Additional Past Alcohol Use History / Comment(s): SMOKES 1/2 PPD., SMOKING SINCE 15 YEARS OLD. Past Drug Use History: None Reported Additional Drug Use History / Comment(s): HX OF METH. USE -DENIES ANY CURRENT DRUG USE. - Past Family History Mother Family Medical History: No Reported History Additional Family Medical History / Comment(s): "pre cancer" Medications and Allergies Home Medications Medication Instructions Recorded Confirmed Type "Diet Pill" 1 tab PO DAILY 12/27/19 12/27/19 History Allergies Allergy/AdvReac Type Severity Reaction Status Date / Time Penicillins Allergy Rash/Hives Verified 12/27/19 14:14 Exam Osteopathic Statement: *. No significant issues noted on an osteopathic structural exam other than those noted in the History and Physical/Consult. - OBG Physical Exam Breast: both: normal (no masses) Abdomen: bowel sounds normal, no diffuse tenderness, no bruit present, no guarding noted, no hepatomegaly, no splenomegaly, no mass Vulva: both: normal Vagina: normal moisture, no discharge Cervix: no lesion, no discharge Uterus: normal size, normal contour Adnexa: both: normal Anus/Rectum: normal perianal skin, no rectal mass, no hemorrhoids, heme negative
[2020-01-02 08:19] VITALS: TEMP 97.1
[2020-01-02] MEDS: HYDROmorphone 0.5 MG/0.5 ML SYRINGE IVP PRN ×4 (08:20→09:03)
[2020-01-02] MEDS ORDERED: LACTATED RINGERS 1,000 ML IV ONE (08:56)
[2020-01-02] MEDS ORDERED: ONDANSETRON ODT 4 MG TAB PO ONE (10:09)
[2020-01-02] MEDS ORDERED: PROMETHAZINE INJ 25 MG/ML 1 ML VIAL IVPB ONE (10:47)
[2020-01-02 11:12] VITALS: BP 126/85; PULSE 60
== END 2020-01-02 11:33 | disposition home or self-care (01) ==
LOC: OR 06:17
PROVIDERS: ATTEND Obstetrics & Gynecology
DX: Z30.2 Encounter for sterilization (principal); Q50.6 Other congenital malformations of fallopian tube and broad ligament; N80.3 Endometriosis of pelvic peritoneum; F90.9 Attention-deficit hyperactivity disorder, unspecified type; K21.9 Gastro-esophageal reflux disease without esophagitis; F41.9 Anxiety disorder, unspecified; F31.9 Bipolar disorder, unspecified; F43.10 Post-traumatic stress disorder, unspecified; F17.210 Nicotine dependence, cigarettes, uncomplicated; E66.9 Obesity, unspecified; Z68.29 Body mass index [BMI] 29.0-29.9, adult; Z90.79 Acquired absence of other genital organ(s); Z87.59 Personal history of other complications of pregnancy, childbirth and the puerperium; Z85.41 Personal history of malignant neoplasm of cervix uteri; Z91.040 Latex allergy status; Z88.0 Allergy status to penicillin; Z88.8 Allergy status to other drugs, medicaments and biological substances; Z90.49 Acquired absence of other specified parts of digestive tract; Z79.899 Other long term (current) drug therapy; Z79.891 Long term (current) use of opiate analgesic; Z98.890 Other specified postprocedural states; Z87.81 Personal history of (healed) traumatic fracture; Z98.51 Tubal ligation status; Z80.9 Family history of malignant neoplasm, unspecified; Z82.49 Family history of ischemic heart disease and other diseases of the circulatory system; Z84.89 Family history of other specified conditions
CPT/HCPCS: 81025; 58671; J2250; J1100; J2550; J2710; J2405; J2001; J3010; J1885; J0330; J2704; J1170